=== PATIENT | female | born 1985 | race African-American/Black ===

== ENCOUNTER 2016-09-03 00:52 | Emergency (ER) | payer OTHER ==
[2016-09-03 00:59] VITALS: BP 121/57
--- NOTE | 2016-09-03 02:01 | ED ---
Lower Extremity - HPI Summary HPI Summary: 30 F presents with left ankle pain for 2 days. She says she slipped on black ice and twisted her knee/ankle. She denies any previous injury to the area. She has been able to ambulate on it. She denies any numbness or tingling. - History of Current Complaint Chief Complaint: EDExtremityLower Stated Complaint: LEFT ANKLE PAIN//FALL Time Seen by Provider: 09/03/16 01:07 Hx Last Menstrual Period: 09/2015 Pain Intensity: 9 - Allergies/Home Medications Allergies/Adverse Reactions: Allergies Allergy/AdvReac Type Severity Reaction Status Date / Time No Known Allergies Allergy Verified 02/16/16 16:38 PMH/Surg Hx/FS Hx/Imm Hx Endocrine/Hematology History: Denies: Hx Anticoagulant Therapy Cardiovascular History: Denies: Hx Hypertension - Surgical History Surgery Procedure, Year, and Place: LEAP procedure Infectious Disease History: Yes Infectious Disease History: Reports: Hx of Known/Suspected MRSA - groin abcess Denies: History Other Infectious Disease, Traveled Outside the in Last 30 Days - Family History Known Family History: Positive: None - noncontirbutory Negative: Cardiac Disease - Social History Alcohol Use: None Substance Use Type: Reports: None Smoking Status (MU): Never Smoked Tobacco Have You Smoked in the Last Year: No Review of Systems Negative: Fever Negative: Chest Pain Negative: Shortness Of Breath Positive: Myalgia - left ankle pain All Other Systems Reviewed And Are Negative: Yes Physical Exam Triage Information Reviewed: Yes Vital Signs On Initial Exam: Initial Vitals Temp Pulse Resp BP Pulse Ox 98.8 F 99 18 121/57 100 09/03/16 00:55 09/03/16 00:55 09/03/16 00:55 09/03/16 00:55 09/03/16 00:55 Vital Signs Reviewed: Yes Appearance: Positive: Well-Appearing Skin: Positive: Warm, Dry Head/Face: Positive: Normal Head/Face Inspection Eyes: Positive: Normal, Conjunctiva Clear ENT: Positive: Normal ENT inspection, Pharynx normal, TMs normal Respiratory/Lung Sounds: Positive: Clear to Auscultation, Breath Sounds Present Cardiovascular: Positive: Normal, RRR Musculoskeletal: Positive: Strength/ROM Intact - of left knee, toes,, Limited @ - ankle due to pain, Other - edema noted over anterior talofibular ligament and tenderness over ligament, no step of noted, good pulses, sensation grossly intact, no tenderness of knee, capillary refill<2 secs Diagnostics - Vital Signs Vital Signs Temp Pulse Resp BP Pulse Ox 09/03/16 00:55 98.8 F 99 18 121/57 100 - Laboratory Lab Statement: Any lab studies that have been ordered have been reviewed, and results considered in the medical decision making process. - Radiology ankle Xray Interpretation: No Acute Changes Radiology Interpretation Completed By: ED Physician knee Xray Interpretation: No Acute Changes Radiology Interpretation Completed By: ED Physician tibia Xray Interpretation: No Acute Changes Radiology Interpretation Completed By: ED Physician Lower Extremity Course/Dx - Course Course Of Treatment: 30 F presents with left ankle/knee pain for two days. She was walking when she slipped on black ice and twisted her ankle/knee. She has been able to ambulate since. no edema noted of knee one exam and is nontender. tenderness of ankle over anterior talofibular ligament. I read xray as normal , likely sprain, will treat conservatively, patient agrees with plan - Diagnoses Differential Diagnosis/HQI/PQRI: Positive: Fracture (Closed), Sprain, Strain Provider Diagnoses: Left ankle pain Discharge - Discharge Plan Condition: Good Disposition: HOME Patient Education Materials: Ankle Sprain (ED) Forms: *Work Release Referrals: [facility] [place] [facility] [Outside] Additional Instructions: Ice, rest, elevate Keep david wrap on area Take Tylenol or ibuprofen for pain Set up care with primary care office to follow up Return to ED if develop any numbness, tingling, or ability to move joint or any new symptoms
[2016-09-03] MEDS ORDERED: Ibuprofen TAB* 600 MG PO ONE (02:02)
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
--- NOTE | 2016-09-03 08:02 | RAD ---
HISTORY: Left lower leg pain, fall COMPARISONS: Left ankle dated September 03, 2016 VIEWS: 2, Frontal and lateral views of the proximal left foreleg. The left ankle is not included within the [id number] the current examination. FINDINGS: BONE DENSITY: Normal. BONES: There is no displaced fracture. JOINTS: There is no arthropathy. ALIGNMENT: There is no dislocation. SOFT TISSUES: Unremarkable. OTHER FINDINGS: None. IMPRESSION: NO ACUTE OSSEOUS INJURY OF THE VISUALIZED PORTION OF THE LEFT FORELEG. IF SYMPTOMS PERSIST, RECOMMEND REPEAT IMAGING.
--- NOTE | 2016-09-03 08:04 | RAD ---
INDICATION: Left knee pain COMPARISON: None TECHNIQUE: AP, lateral, and oblique views were obtained. FINDINGS: The bony structures, joint spaces, and soft tissues are normal for age. IMPRESSION: NEGATIVE EXAMINATION.
== END 2016-09-03 02:41 | disposition home or self-care (01) ==
LOC: ED 00:52
DX: M25.572 Pain in left ankle and joints of left foot (principal); M25.562 Pain in left knee
CPT/HCPCS: 99281; A9270-GY

== ENCOUNTER 2016-09-09 12:49 | Emergency (ER) | payer SELFPAY ==
[2016-09-09 13:07] VITALS: BP 139/93
--- NOTE | 2016-09-09 13:44 | UC ---
Lower Extremity/Ankle HPI - HPI Summary HPI Summary: Slipped and fell on ice 6 days ago, was seen at ED and had negative ankle, knee , and lower leg x-rays. Was given an david wrap and crutches in the ED, but not using crutches because she has continued to work. Still having a lot of pain with weight bearing, feels she has been unable to rest because of work responsibilities. Scheduled to work double shift tomorrow. - History of Current Complaint Chief Complaint: UCLowerExtremity Stated Complaint: FOLLOW UP LEG INJURY Time Seen by Provider: 09/09/16 13:12 Hx Obtained From: Patient Hx Last Menstrual Period: DEPO ?: No Onset/Duration: Sudden Onset Severity Initially: Moderate Severity Currently: Mild Aggravating Factor(s): Standing, Ambulation Alleviating Factor(s): Rest Able to Bear Weight: Yes Related History: Occupational Injury - Allergies/Home Medications Allergies/Adverse Reactions: Allergies Allergy/AdvReac Type Severity Reaction Status Date / Time No Known Allergies Allergy Verified 02/16/16 16:38 PMH/Surg Hx/FS Hx/Imm Hx Cardiovascular History Of: Denies: Hypertension Other History Of: Negative For: Anticoagulant Therapy - Surgical History Surgical History: Yes Surgery Procedure, Year, and Place: LEAP procedure - Family History Known Family History: Positive: None - noncontirbutory Negative: Cardiac Disease - Social History Occupation: Employed Full-time - [employer] Lives: With Family Alcohol Use: None Substance Use Type: None Smoking Status (MU): Never Smoked Tobacco Have You Smoked in the Last Year: No - Immunization History Most Recent Influenza Vaccination: 06/07/13 Most Recent Tetanus Shot: UTD Most Recent Pneumonia Vaccination: never Review of Systems Constitutional: Negative Skin: Negative Eyes: Negative ENT: Negative Respiratory: Negative Cardiovascular: Negative Gastrointestinal: Negative Genitourinary: Negative Motor: Negative Neurovascular: Negative Musculoskeletal: Arthralgia - L ankle pain with swelling Neurological: Negative Psychological: Negative All Other Systems Reviewed And Are Negative: Yes Physical Exam Triage Information Reviewed: Yes Appearance: Well-Appearing, No Pain Distress, Well-Nourished Vital Signs: Initial Vital Signs Temp 99.9 F 09/09/16 13:04 Pulse 101 09/09/16 13:04 Resp 14 09/09/16 13:04 BP 139/93 09/09/16 13:04 Pulse Ox 99 09/09/16 13:04 Vital Signs Reviewed: Yes Eye Exam: Normal Eyes: Positive: Conjunctiva Clear ENT Exam: Normal ENT: Positive: Normal ENT inspection, Hearing grossly normal, Pharynx normal, TMs normal Dental Exam: Normal Neck exam: Normal Neck: Positive: Supple, Nontender, No Lymphadenopathy Respiratory Exam: Normal Respiratory: Positive: Chest non-tender, Lungs clear, Normal breath sounds, No respiratory distress, No accessory muscle use Cardiovascular Exam: Normal Cardiovascular: Positive: RRR, No Murmur Musculoskeletal: Positive: ROM Limited @ - L ankle, Other: - tender over L lateral ankle ligaments only. No bony tenderness. Neurological Exam: Normal Psychological Exam: Normal Skin Exam: Normal Lower Extremity Course/Dx - Differential Dx/Diagnosis Provider Diagnoses: L ankle sprain Discharge - Discharge Plan Condition: Stable Disposition: HOME Patient Education Materials: Ankle Sprain (ED) Forms: *Work Release Referrals: Radha Perez MD [Medical Doctor] - 1 Week Additional Instructions: If your ankle does not start to improve with better rest and immobilization, you may need further imaging (follow-up x-ray or MRI) to be ordered by the orthopedist. Keep the boot on for all weight-bearing until you follow up with the orthopedist.
== END 2016-09-09 13:40 | disposition home or self-care (01) ==
LOC: UCEAST 12:49
DX: S93.402A Sprain of unspecified ligament of left ankle, initial encounter (principal); W00.0XXA Fall on same level due to ice and snow, initial encounter; Y93.9 Activity, unspecified; Y92.89 Other specified places as the place of occurrence of the external cause; Y99.0 Civilian activity done for income or pay
CPT/HCPCS: 99202; G0463

== ENCOUNTER → 2016-10-14 10:57 | Day surgery (SDC) | payer OTHER ==
[~2016-10-14 10:57] MED LIST: Buffered Lidocaine 1% SYRIN* 3 ML/SYR SYRINGE INTRADERM ONE; Bupivacaine 0.5% SDV PF* 30 ML VIAL ONE; Bupivacaine 0.5% W/EPI SDV* 30 ML VIAL ONE; Dexamethasone IV* 4 MG/ML 1 ML (4 MG) IV SLOW PU ONE; Dexamethasone IV* 4 MG/ML 1 ML (4 MG) ONE; DiMENhydriNATE IV* 50 MG/ML VIAL IV PUSH PRN; DiMENhydriNATE IV* 50 MG/ML VIAL ONE; Famotidine IV* 10 MG/ML 2 ML (20 mg) IV ONE; Famotidine IV* 10 MG/ML 2 ML (20 mg) ONE; HYDROmorphone* 1 MG/ML 1 ML SYR IV PRN; KETAMINE HCL* 50 MG/ML 10 ML VIAL ONE; Ketorolac INJ* 30 MG/ML 1 ML VIAL ONE; Lidocaine 1% INJ* 10 MG/ML 30 ML SDV ONE; Midazolam* 1 MG/ML 2 ML VIAL (2 MG) ONE; Ondansetron INJ* 2 MG/ML VIAL ONE; Propofol* 10 MG/ML 20 ML BTL IV PUSH ONE; ceFAZolin 2 GM PREMIX(*) 2 GM/50 ML BAG IVPB ONE; fentaNYL* 50 MCG/ML 2 ML VIAL (100 MCG VIAL) ONE
[2016-10-14 11:20] LABS: Manual Entry Verification AS; UR Preg Internal Control QC Line Present; UR Preg Kit Lot# 6030156
[2016-10-14] MEDS: fentaNYL* 50 MCG/ML 2 ML VIAL (100 MCG VIAL) IV PRN ×2 (15:37→16:04)
[2016-10-14 16:18] VITALS: BP 138/94
--- NOTE | 2016-10-15 06:27 | OP ---
DATE OF OPERATION: 10/14/16 - [facility] DATE OF : 85 SURGEON: Anton Carreon MD SCANNING MANAGER: GAURI Hawk ANESTHESIOLOGIST: Dr. Cook. ANESTHESIA: General anesthetic, local infiltration. PRE-OP DIAGNOSIS: Hidradenitis of the left groin. POST-OP DIAGNOSIS: Hidradenitis of the left groin. OPERATIVE PROCEDURE: Wide excision, hidradenitis of left groin. DESCRIPTION OF PROCEDURE: The patient was supine on the operative table. After adequate general anesthetic, compression stockings, Alysia Hugger warmer, and intravenous antibiotics, the left leg was put in the frog leg position and the entire groin, thigh, and lower abdomen region were prepped with Betadine and draped in a sterile fashion. An elliptical incision was created to encompass all the severely infected areas and tracts and this was carried down to the fascia to remove in its entirety and down on to the thigh. This was mobilized and brought upward and the adipose approximated with 3-0 Vicryl and skin with 3- 0 Prolene. Two areas, one above and one below, were left partially open to allow packing and the corner of 4x4 was put into each site followed by bulky gauze dressing. She was awakened and brought to Recovery in good condition. No complications. No drains. Sponge and instrument counts correct. Estimated blood loss was 50 mL. CC: Dr. Sharad Torre* [id number]/CPS #: [id number] MTDD
== END | disposition home or self-care (01) ==
LOC: OR 10:57
PROVIDERS: ATTEND Surgery
DX: L73.2 Hidradenitis suppurativa (principal); Z68.31 Body mass index [BMI] 31.0-31.9, adult
CPT/HCPCS: 36415; 81025; 86703; 87070; 87073; 87205; 88305; J0690; J1100; J1240; J1885; J2001; J2250; J2405; J2704; J3010

== ENCOUNTER 2018-01-31 09:19 | Emergency (ER) | payer SELFPAY ==
[2018-01-31 09:32] VITALS: BP 137/85
--- NOTE | 2018-01-31 10:29 | RAD ---
HISTORY: right thumb injury COMPARISONS: None VIEWS: 3, Frontal, lateral, and oblique views of the first digit of the right hand FINDINGS: BONE DENSITY: Normal. BONES: There is no displaced fracture. JOINTS: There is no arthropathy. ALIGNMENT: There is no dislocation. SOFT TISSUES: Unremarkable. OTHER FINDINGS: None. IMPRESSION: NO ACUTE OSSEOUS INJURY. IF SYMPTOMS PERSIST, RECOMMEND REPEAT IMAGING.
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
== END 2018-01-31 10:44 | disposition home or self-care (01) ==
LOC: UCEAST 09:19
DX: S69.91XA Unspecified injury of right wrist, hand and finger(s), initial encounter (principal); R03.0 Elevated blood-pressure reading, without diagnosis of hypertension; G43.909 Migraine, unspecified, not intractable, without status migrainosus; Y04.0XXA Assault by unarmed brawl or fight, initial encounter; Y92.9 Unspecified place or not applicable
CPT/HCPCS: 99212; G0463

== ENCOUNTER 2018-11-07 08:39 | Emergency (ER) | payer SELFPAY ==
[2018-11-07 08:58] VITALS: BP 117/65
--- NOTE | 2018-11-07 10:39 | UC ---
Hand/Wrist HPI - HPI Summary HPI Summary: 33 year old female presents with complaints of numbness and tingling to the right ulnar arm, hand, ring and pinky fingers x 2 weeks. Denies injury, headache , neck pain, facial droop, slurred or difficulty speaking, extremity weakness, chest pain, or SOB. - History Of Current Complaint Chief Complaint: UCUpperExtremity Stated Complaint: RT HAND NUMBNESS Time Seen by Provider: 11/07/18 10:34 Hx Obtained From: Patient Hx Last Menstrual Period: depo Pain Intensity: 0 - Allergies/Home Medications Allergies/Adverse Reactions: Allergies Allergy/AdvReac Type Severity Reaction Status Date / Time No Known Allergies Allergy Verified 11/07/18 08:59 PMH/Surg Hx/FS Hx/Imm Hx Previously Healthy: Yes - Denies significant PMH Other History Of: Negative For: Anticoagulant Therapy - Surgical History Surgical History: Yes Surgery Procedure, Year, and Place: leep procedure , 15 yrs ago - [place]. bilateral axillary hidrandenitis - 2 yrs ago - [place] - Family History Known Family History: Positive: Non-Contributory - Social History Occupation: Employed Full-time Lives: With Family Alcohol Use: Rare Substance Use Type: Marijuana Substance Use Comment - Amount & Last Used: occ. Smoking Status (MU): Never Smoked Tobacco Have You Smoked in the Last Year: No - Immunization History Most Recent Influenza Vaccination: 06/07/13 Most Recent Tetanus Shot: UTD Most Recent Pneumonia Vaccination: never Review of Systems All Other Systems Reviewed And Are Negative: Yes Constitutional: Positive: Negative Skin: Positive: Negative Respiratory: Positive: Negative Cardiovascular: Positive: Negative Gastrointestinal: Positive: Negative Genitourinary: Positive: Negative Musculoskeletal: Negative: Arthralgia, Decreased ROM, Edema, Myalgia Neurological: Positive: Paresthesia Psychological: Positive: Negative Is Patient Immunocompromised?: No Physical Exam - Summary Physical Exam Summary: GENERAL APPEARANCE: Well developed, well nourished, alert and cooperative, and appears to be in no acute distress. NECK: Neck supple, non-tender. CARDIAC: Normal S1 and S2. No S3, S4 or murmurs. Rhythm is regular. There is no peripheral edema, cyanosis or pallor. Extremities are warm and well perfused. Capillary refill is less than 2 seconds. Peripheral pulses intact. LUNGS: Clear to auscultation without rales, rhonchi, wheezing or diminished breath sounds. ABDOMEN: Positive bowel sounds. Soft, nondistended, nontender. No guarding or rebound. No masses or hepatosplenomegally. MUSKULOSKELETAL: ROM intact to all extremities. No joint erythema or tenderness. Normal muscular development. Normal gait. 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 Light touch and ability to determine sharp and dull sensation intact throughout all dermatomes of the right hand and arm. SKIN: Skin normal color, texture and turgor with no lesions or eruptions. Triage Information Reviewed: Yes Vital Signs: Initial Vital Signs Temp 97.7 F 11/07/18 08:56 Pulse 91 11/07/18 08:56 Resp 29 11/07/18 08:56 BP 117/65 11/07/18 08:56 Pulse Ox 100 11/07/18 08:56 Vital Signs Reviewed: Yes Hand/Wrist Course/Dx - Course Course Of Treatment: 33 year old female presents with complaints of numbness and tingling to the right ulnar arm, hand, ring and pinky fingers x 2 weeks. Denies injury, headache , neck pain, facial droop, slurred or difficulty speaking, extremity weakness, chest pain, or SOB. Afebrile. VSS. Exam was overall unremarkable. I suspect that her symptoms are likely an ulnar neuropathy at the elbow however patient noted the parathesia was most prominent in the ulnar hand, ring, and pinky fingers therefore she was placed in a cockup wrist splint. Recommending conservative treatment including a referral to PT for evaluation and treatment. She is to follow up with her PCP within 7 days. Anticipatory guidance and warning symptoms were reviewed with the patient. Verbalizes understanding and agrees with POC. - Differential Dx/Diagnosis Differential Diagnosis/HQI/PQRI: Carpal Tunnel Syndrome, Sprain, Strain, Tendonitis Provider Diagnosis: Ulnar neuropathy Discharge - Sign-Out/Discharge Documenting (check all that apply): Patient Departure All imaging exams completed and their final reports reviewed: No Studies - Discharge Plan Condition: Stable Disposition: HOME Patient Education Materials: Cubital Tunnel Syndrome (ED) Referrals: Sharad Torre MD [Primary Care Provider] - 7 Days Additional Instructions: I suspect that your symptoms are from a condition called ulnar nerve neuropathy. It is most likely that this is occurring at the level of the elbow. We will try some conservative treatments to see if the symptoms improve. Use the cock-up wrist splint that was provided to you. Avoid leaning on the elbows when seated or driving and avoid prolonged elbow flexion. The use of a soft foam elbow pad may also help to prevent compression of the ulnar nerve at the elbow. I have given you an order for physical therapy which may be beneficial. Follow up with your primary care provider in 7 days if no improvement in symptoms as you may need some nerve conduction testing to further evaluate the symptoms. Seek immediate medical attention in the emergency room if you develop chest pain , shortness of breath, sudden severe headache, facial droop, slurred or difficulty speaking, weakness of the extremities, or any worsening of symptoms. - Billing Disposition and Condition Condition: STABLE Disposition: Home
== END 2018-11-07 11:24 | disposition home or self-care (01) ==
LOC: UCEAST 08:39
DX: G56.21 Lesion of ulnar nerve, right upper limb (principal)
CPT/HCPCS: 99212; G0463

== ENCOUNTER 2018-11-09 08:27 | Emergency (ER) | payer OTHER ==
[2018-11-09 08:36] VITALS: BP 107/65
--- NOTE | 2018-11-09 09:14 | UC ---
HPI Wound/Suture Re-check - HPI Summary HPI Summary: patient here for suture removal of buttocks where abscess was drained. Placed November 01, 2018. No complaints of pain or temperature. - History Of Current Complaint Chief Complaint: UCLaceration Stated Complaint: SUTURE REMOVAL Time Seen by Provider: 11/09/18 09:06 Hx Last Menstrual Period: depo Pain Intensity: 0 - Allergies/Home Medications Allergies/Adverse Reactions: Allergies Allergy/AdvReac Type Severity Reaction Status Date / Time No Known Allergies Allergy Verified 11/09/18 08:36 PMH/Surg Hx/FS Hx/Imm Hx - Additional Past Medical History Additional PMH: PMH: hx of hidrandenitis supparativa. On chronic doxycyline. Family Hx: DM. Previously Healthy: Yes Other History Of: Negative For: Anticoagulant Therapy - Surgical History Surgical History: Yes Surgery Procedure, Year, and Place: leep procedure , 15 yrs ago - [place]. 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 Smoking Status (MU): Never Smoked Tobacco Have You Smoked in the Last Year: No - Immunization History Most Recent Influenza Vaccination: 06/07/13 Most Recent Tetanus Shot: UTD Most Recent Pneumonia Vaccination: never Review of Systems All Other Systems Reviewed And Are Negative: Yes Skin: Positive: Other - healed abscess buttocks Respiratory: Positive: Negative. Negative: Shortness Of Breath Cardiovascular: Positive: Negative Gastrointestinal: Positive: Negative Genitourinary: Positive: Negative Physical Exam - Summary Physical Exam Summary: Appearance: The patient is well-appearing, is in no pain or distress, and is well-nourished. Eyes: Conjunctiva are clear. Pupils are equal and reactive to light and accommodation. Extra ocular muscle movement is intact. ENT: The hearing is grossly normal, the pharynx is normal, and the TMs are normal. There is no muffled or hoarse voice. No stridor. Neck: The neck is supple and there is no lymphadenopathy. Respiratory: The chest is nontender to palpation and without crepitus. The lungs are clear, there are normal breath sounds, and there is no respiratory distress. No wheezes, rales or rhonchi. Cardiovascular: Heart sounds reveal a regular rate and rhythm. There are no clicks, rubs or murmurs. There are no carotid bruits or thrills. Circulation is grossly intact. Abdomen: The abdomen is soft and nontender. There is no organomegaly. Bowel sounds are present and within normal limits. No point tenderness at McBurneys point. Musculoskeletal: Strength is intact. The patient moves all extremities. Neurological: The patient is alert. Motor and sensory are examination grossly intact. Speech is normal. Psychological: The patient displays age appropriate behavior Skin: area of buttocks; well healed abscess. No other skin abscess. PROCEDURE: 3 SUTURES REMOVED. Slight induration. No infection. Slight pain with palpation. Triage Information Reviewed: Yes Vital Signs: Initial Vital Signs Temp 98.8 F 11/09/18 08:33 Pulse 100 11/09/18 08:33 Resp 20 11/09/18 08:33 BP 107/65 11/09/18 08:33 Pulse Ox 100 11/09/18 08:33 Course/Dx - Course Course Of Treatment: 33 yo for suture removal for abscess of buttocks. No sign of infection. Slight induration and tenderness. 3 stitches removed. Patient knows to follow up for increasing pain, swelling or redness. Dx. is resolved abscess, buttocks. - Differential Dx - Laceration/Wound Differential Diagnoses: Suture Removal - Diagnosis Provider Diagnosis: Visit for suture removal, Hidradenitis suppurativa Discharge - Sign-Out/Discharge Documenting (check all that apply): Patient Departure All imaging exams completed and their final reports reviewed: No Studies - Discharge Plan Condition: Stable Disposition: HOME Patient Education Materials: Stitches Removal (ED) Referrals: Sharad Torre MD [Primary Care Provider] - Additional Instructions: WE DISCUSSED: Your 3 stitches have been removed from the area of your buttocks. There is still mild tenderness, but there is no sign of infection. Watch for any increasing swelling, redness, or pain. Recheck if you note any of these. PLEASE SEEK CARE AT THE EMERGENCY DEPARTMENT IF SYMPTOMS WORSEN OR IF NEW SYMPTOMS DEVELOP. FOLLOW UP WITH YOUR PRIMARY CARE PHYSICIAN IF CONDITION CONTINUES BEYOND 3 DAYS WITHOUT IMPROVEMENT. D - Billing Disposition and Condition Condition: STABLE Disposition: Home
== END 2018-11-09 09:33 | disposition home or self-care (01) ==
LOC: UCEAST 08:27
DX: L02.31 Cutaneous abscess of buttock (principal); L73.2 Hidradenitis suppurativa

== ENCOUNTER 2019-01-06 10:44 | Emergency (ER) | payer OTHER ==
[2019-01-06 10:50] VITALS: BP 121/68
[2019-01-06] MEDS ORDERED: Ketorolac INJ* 60 MG/2 ML VIAL IM ONE (11:10)
--- NOTE | 2019-01-06 11:31 | UC ---
Knee Pain HPI - HPI Summary HPI Summary: 33 yo female c/o progressive left knee pain over the past week. Works on her feet a lot, mostly nights. Has been difficult to bear weight. Knee feels more warm and more swollen progressively. Not red. No fever / chills. No recent injury. No other joint c/o's. No GI issues. No rash. No cough / sob. Some swelling in both lower exts/ feet. - History of Current Complaint Chief Complaint: UCLowerExtremity Stated Complaint: KNEE COMPLAINT Time Seen by Provider: 01/06/19 10:50 Hx Obtained From: Patient Hx Last Menstrual Period: depo Pain Intensity: 7 - Allergies/Home Medications Allergies/Adverse Reactions: Allergies Allergy/AdvReac Type Severity Reaction Status Date / Time No Known Allergies Allergy Verified 01/06/19 10:50 PMH/Surg Hx/FS Hx/Imm Hx Previously Healthy: Yes Other History Of: Negative For: Anticoagulant Therapy - Surgical History Surgical History: Yes Surgery Procedure, Year, and Place: leep procedure , 15 yrs ago - [place]. bilateral axillary hidrandenitis - 2 yrs ago - [place] - Family History Known Family History: Positive: Diabetes, Non-Contributory - Social History Alcohol Use: Rare Substance Use Type: Marijuana Substance Use Comment - Amount & Last Used: occ. Smoking Status (MU): Never Smoked Tobacco Have You Smoked in the Last Year: No - Immunization History Most Recent Influenza Vaccination: 06/07/13 Most Recent Tetanus Shot: UTD Most Recent Pneumonia Vaccination: never Review of Systems All Other Systems Reviewed And Are Negative: Yes Constitutional: Positive: Negative Skin: Positive: Other - see hpi Eyes: Positive: Negative ENT: Positive: Negative Respiratory: Positive: Negative Cardiovascular: Positive: Negative Gastrointestinal: Positive: Negative Genitourinary: Positive: Negative Motor: Positive: Other - see hpi Neurovascular: Positive: Negative Musculoskeletal: Positive: Other: - see hpi Neurological: Positive: Negative Psychological: Positive: Negative Is Patient Immunocompromised?: No Physical Exam Triage Information Reviewed: Yes Appearance: Well-Appearing, Well-Nourished Vital Signs: Initial Vital Signs Temp 98 F 01/06/19 10:48 Pulse 78 01/06/19 10:48 Resp 17 01/06/19 10:48 BP 121/68 01/06/19 10:48 Pulse Ox 100 01/06/19 10:48 Vital Signs Reviewed: Yes Eye Exam: Normal - grossly normal ENT Exam: Normal - grossly normal Neck exam: Normal Respiratory Exam: Normal - RR normal, no dyspnea, no tachypnea Cardiovascular Exam: Normal - HR normal, nondiaphoretic. Abdominal Exam: Normal Abdomen Description: Positive: Nontender - benign Musculoskeletal Exam: Other - Left knee + swelling, tender inf patella and med patella. + post knee fluctunce. no redness. No streaking. Able to straighten albeit uncomfortable. Not able to fully bend. No open sores. No lester joint laxity, but there is hesitation with examination Neurological Exam: Normal - nonfocal Psychological Exam: Normal - conversing easily and appropriately Skin Exam: Normal - no visible or reported rash Knee Pain Course/Dx - Course Course Of Treatment: Ketorolac 60mg im x 1 Xray L knee - see Be Spotted. Has crutches at home. Will look into possible knee scooter (maybe at work). F/u orthopedics, referral given today. Questions as posed answered to the best of my ability. - Differential Dx/Diagnosis Provider Diagnosis: Knee pain, acute Discharge - Sign-Out/Discharge Documenting (check all that apply): Post-Discharge Follow Up All imaging exams completed and their final reports reviewed: Yes - Discharge Plan Condition: Stable Disposition: HOME Prescriptions: Meloxicam 7.5 mg PO DAILY #30 tablet Patient Education Materials: Knee Pain (ED) Forms: *Work Release Referrals: Sharad Torre MD [Primary Care Provider] - Additional Instructions: Please stay off your foot as much as possible. Elevate frequently. Edi wrap (or neoprene wrap) during the day if possible. Please follow up with Orthopedics early this week. Seek medical attention for worse or new problems, especially if redness, fever, worse or new pain. - Billing Disposition and Condition Condition: STABLE Disposition: Home
== END 2019-01-06 12:25 | disposition home or self-care (01) ==
LOC: UCEAST 10:44
DX: M25.562 Pain in left knee (principal)
CPT/HCPCS: 96372; 99212; G0463; J1885

== ENCOUNTER 2019-01-20 09:11 | Emergency (ER) | payer SELFPAY ==
[2019-01-20] MEDS ORDERED: NS 0.9% 1000 ML** 1,000 ML IV ONE (09:28)
[2019-01-20] MEDS ORDERED: Ketorolac INJ* 30 MG/ML 1 ML VIAL IV ONE (09:28)
[2019-01-20] MEDS ORDERED: Ondansetron INJ* 2 MG/ML VIAL IV ONE (09:28)
--- NOTE | 2019-01-20 09:32 | ED ---
Complex/Multi-Sys Presentation - HPI Summary HPI Summary: 33 year old F presenting to [facility] with a chief complaint of sharp right-sided flank pain since 23:00 yesterday. The patient rates the pain 7/10 in severity. Symptoms aggravated by deep breathing. Symptoms alleviated by nothing. Patient reports myalgia and chills. Patient denies cough, fever. Patient states she is having difficulty breathing due to the pain. - History Of Current Complaint Chief Complaint: EDShortnessOfBreath Time Seen by Provider: 01/20/19 09:14 Hx Obtained From: Patient Onset/Duration: Sudden Onset, Lasting Hours - 21:00 yesterday, Still Present Timing: Constant Severity Currently: Moderate Aggravating Factor(s): Deep breathing Alleviating Factor(s): Nothing Associated Signs And Symptoms: Positive: Other - Myalgia, chills, difficulty breathing; NEG: Fever, cough - Allergies/Home Medications Allergies/Adverse Reactions: Allergies Allergy/AdvReac Type Severity Reaction Status Date / Time No Known Allergies Allergy Verified 01/20/19 09:17 PMH/Surg Hx/FS Hx/Imm Hx Previously Healthy: No Endocrine/Hematology History: Denies: Hx Anticoagulant Therapy Cardiovascular History: Denies: Hx Hypertension GI History: Reports: Hx Gastroesophageal Reflux Disease - only during Sensory History: Reports: Hx Contacts or Glasses - contacts, will wear glasses day of surgery Opthamlomology History: Reports: Hx Contacts or Glasses - contacts, will wear glasses day of surgery Neurological History: Reports: Hx Migraine - takes prn excedrin - Surgical History Surgery Procedure, Year, and Place: leep procedure , 15 yrs ago - [place]. bilateral axillary hidrandenitis - 2 yrs ago - [place] Hx Anesthesia Reactions: No Infectious Disease History: No Infectious Disease History: Reports: Hx of Known/Suspected MRSA - groin abcess Denies: History Other Infectious Disease, Traveled Outside the [place] in Last 30 Days - Family History Known Family History: Positive: Diabetes Negative: Cardiac Disease, Hypertension - Social History Alcohol Use: Rare Hx Substance Use: Yes Substance Use Type: Reports: Marijuana Substance Use Comment - Amount & Last Used: occ. Hx Tobacco Use: No Smoking Status (MU): Never Smoked Tobacco Have You Smoked in the Last Year: No Review of Systems Positive: Chills. Negative: Fever Positive: Other - difficulty breathing . Negative: Cough Positive: flank pain - right Positive: Myalgia All Other Systems Reviewed And Are Negative: Yes Physical Exam - Summary Physical Exam Summary: VITAL SIGNS: Reviewed. GENERAL: Patient is a well-developed and nourished FEMALE who is in acute distress secondary to her pain. HEAD AND FACE: No signs of trauma. No ecchymosis, hematomas or skull depressions. No sinus tenderness. EYES: PERRLA, EOMI x 2, No injected conjunctiva, no nystagmus. EARS: Hearing grossly intact. Ear canals and tympanic membranes are within normal limits. MOUTH: Oropharynx within normal limits. NECK: Supple, trachea is midline, no adenopathy, no JVD, no carotid bruit, no c- spine tenderness, neck with full ROM. CHEST: Symmetric, no tenderness at palpation LUNGS: Clear to auscultation bilaterally. No wheezing or crackles. CVS: Regular rate and rhythm, S1 and S2 present, no murmurs or gallops appreciated. ABDOMEN: Soft, non-tender. No signs of distention. No rebound no guarding, and no masses palpated. Bowel sounds are normal. BACK: Patient has right flank tenderness and right CVA tenderness EXTREMITIES: FROM in all major joints, no edema, no cyanosis or clubbing. NEURO: Alert and oriented x 3. No acute neurological deficits. Speech is normal and follows commands. SKIN: Dry and warm. Triage Information Reviewed: Yes Vital Signs On Initial Exam: Initial Vitals Temp Pulse Resp BP Pulse Ox 97.4 F 79 22 134/88 98 01/20/19 09:14 01/20/19 09:14 01/20/19 09:14 01/20/19 09:14 01/20/19 09:14 Vital Signs Reviewed: Yes Diagnostics - Vital Signs Vital Signs Temp Pulse Resp BP Pulse Ox 01/20/19 09:14 97.4 F 79 22 134/88 98 - Laboratory Result Diagrams: 01/20/19 09:38 01/20/19 09:38 Lab Statement: Any lab studies that have been ordered have been reviewed, and results considered in the medical decision making process. - Radiology Ribs with CXR Radiology Interpretation Completed By: Radiologist Summary of Radiographic Findings: 1. Negative exam. ED physician has reviewed this report. - CT Abdomen/Pelvis CT Interpretation Completed By: Radiologist Summary of CT Findings: 1. Normal appendix documented. 2. Negative for obstructive uropathy. 3. No etiology for RIGHT flank pain evident. 4. Noted inflammatory change at the LEFT groin crease and labia majora corresponds with. site of recent abscess drainage per conversation with the referring physician. ED physician has reviewed this report. Re-Evaluation - Re-Evaluation First Eval Re-Evaluation Time: 11:37 Change: Improved Comment: Patient updated on plan of care. She is agreeable to discharge Complex Multi-Symp Course/Dx Assessment/Plan: 33 year old F presenting to [facility] with a chief complaint of sharp right-sided flank pain since 23:00 yesterday. The patient rates the pain 7 /10 in severity. Symptoms aggravated by deep breathing. Symptoms alleviated by nothing. Patient reports myalgia and chills. Patient denies cough, fever. Patient states she is having difficulty breathing due to the pain. Blood work without a significant abnormality except for glucose of 128, CRP is 12.9, myoglobin is 4.6. Abdominal and pelvic CT IMPRESSION: 1. Normal appendix documented. 2. Negative for obstructive uropathy. 3. No etiology for RIGHT flank pain evident. 4. Noted inflammatory change at the LEFT groin crease and labia majora corresponds with site of recent abscess drainage per conversation with the referring physician. As reported by the Pelvic CT, the patient had an I&D of the left Labia majora. CXR: negative exam. In the ED course, the patient was given Toradol for the pain and the symptoms have significantly improved. Since the patients blood test results, chest x-ray and abdominal pelvic CT are negative, I believe that the patients pain is probably secondary to muscular skeletal pain. The patient is not tachycardic or hypoxic so I think that the patient may have a type of pulmonary embolism. I discussed all the findings and test results with the patient. Patient was instructed to return to the emergency room immediately if any of the symptoms return worsens. Plan of care was discussed with the patient and understands and agrees. All questions were answered at patient satisfaction. There were no further complaints or concerns. Lung exam before discharge: CTA B/L. Good air exchange. No wheezing or crackles heard. CVS: S1 and S2 present. No murmurs appreciated. Patient is alert and oriented x 3. Patient is hemodynamically stable. Patient will be discharged home with follow up PCP in the next 2-3 days. - Diagnoses Provider Diagnoses: Flank pain, Rib pain on right side Discharge - Sign-Out/Discharge Documenting (check all that apply): Patient Departure - Discharge Patient Received Moderate/Deep Sedation with Procedure: No - Discharge Plan Condition: Stable Disposition: HOME Patient Education Materials: Flank Pain (ED) Referrals: Sharad Torre MD [Primary Care Provider] - 3 Days Additional Instructions: Follow up with your primary care provider in 3 days. Return to the Emergency Department for new or worsening symptoms. - Billing Disposition and Condition Condition: STABLE Disposition: Home - Attestation Statements Document Initiated by Scribe: Yes Documenting Scribe: Clarisse Link Provider For Whom Scribe is Documenting (Include Credential): Nickolas Copeland MD Scribe Attestation: Clarisse Molina, scribed for Nickolas Copeland MD on 01/20/19 at 1306. Scribe Documentation Reviewed: Yes Provider Attestation: The documentation as recorded by the j carlosibClarisse du accurately reflects the service I personally performed and the decisions made by Nickolas de la fuente MD Status of Scribe Document: Viewed
[2019-01-20 09:46] LABS: ABS Lymphocytes 1.8 10^3/ul (1.0-4.8); ABS Monocytes 0.4 10^3/ul (0-0.8); ABS Neutrophils 4.2 10^3/ul (1.5-7.7); Eosinophil % 0.7 %; Hematocrit 36 % (35-47); Lymphocyte % 27.2 %; Mean Corpuscular HGB Conc 33 g/dL (31-36); Mean Corpuscular Hemoglobin 30 pg (27-31); Mean Corpuscular Volume 89 fL (80-97); Mean Platelet Volume 6.5 fL (7.4-10.4); Platelet Count 300 10^3/uL (150-450); Red Blood Count 4.07 10^6 /uL (3.70-4.87); Red Cell Distribution Width 15 % (10-15); White Blood Count 6.5 10^3/uL (3.5-10.8)
[2019-01-20 10:03] LABS: Albumin 3.8 g/dL (3.2-5.2); Albumin/Globulin Ratio 0.8 (1-3); BUN/Creatinine Ratio 11.1 (8-20); C Reactive Protein 12.96 mg/L (<8.01); Calcium 9.2 mg/dL (8.6-10.3); EGFR African American 112.9 (>60); EGFR Non-African American 93.3 (>60); Globulin 4.6 g/dL (2-4); Total Bilirubin 0.3 mg/dL (0.2-1.0); Total Protein 8.4 g/dL (6.4-8.9)
[2019-01-20 10:08] LABS: HCG Pregnancy 33.62 mIU/mL
--- OUTSIDE RECORDS SUMMARY | 2019-01-20 10:51 | XMS REPORT | Continuity of Care Document ---
:1985 Author Organization [facility] Address [address], [place] [id number] Phone Care Team Providers Name Role Phone Mandy MEDICAL RECORDS DIRECTOR, Ijeoma Unavailable Unavailable [facility], NURSE OR MA Unavailable Unavailable Allergies, Adverse Reactions, Alerts Substance Reaction Status No Known Allergies Active Medications Medication Instructions Dosage Effective Dates Status Comments (start - stop) Depo-Provera 150 mg/mL IM Q 11-13 weeks - Active intramuscular suspension Problems Condition Effective Dates (start - Clinical Status Comments stop) Encounter for surveillance of injectable contraceptive Encounter for surveillance of injectable contraceptive Human immunodeficiency virus [HIV] - counseling Encounter for screening for human - immunodeficiency virus Encounter for oth screening for malignant neoplasm of breast Encntr screen for infections w sexl mode of transmiss Encounter for surveillance of injectable contraceptive 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) w abnormal findings Hidradenitis suppurativa Candidiasis of vulva and vagina Human immunodeficiency virus [HIV] - counseling Encounter for surveillance of injectable contraceptive Encounter for surveillance of injectable contraceptive Encounter for surveillance of injectable contraceptive Encounter for surveillance of injectable contraceptive Encounter for surveillance of injectable contraceptive Human immunodeficiency virus [HIV] - counseling Encounter for oth general cnsl and - advice on contraception Body mass index (BMI) 31.0-31.9, adult Encounter for surveillance of injectable contraceptive Encounter for surveillance of injectable contraceptive Encounter for surveillance of injectable contraceptive Encounter for surveillance of injectable contraceptive Encounter for surveillance of injectable contraceptive Encounter for surveillance of injectable contraceptive Encntr screen for infections w sexl mode of transmiss Encounter for surveillance of injectable contraceptive Encounter for surveillance of injectable contraceptive Encounter for surveillance of injectable contraceptive Encounter for surveillance of injectable contraceptive LABORATORY EXAM NOS LABORATORY EXAM NOS Procedures Procedure Date INJECTION OR LAB ONLY VISIT EST INJECTION DEPO/CEFTRIAXONE OTHER Medical Services Contraceptive Welder Plasma Arc.Svc. Other Welder Plasma Arc.Svc. STI DEPO Results Test Name Date and Time Measure Units Reference Range Abnormal Flag Status Comments No information Advance Directives Directive Yes / No Effective Date File Name No information Encounters Encounter Practice Location Reason(s) Diagnoses Date Provider Providers Description For Visit Copied on Encounter [facility] Encounter for Mandy Referring [facility] surveillance of Ijeoma. [address] Provider: [facility] injectable [address], Ijeoma Finger contraceptive [place], [place], Raphaelidis [facility], [address]. , [address] tel:[phone], [address], [place], [address] [place], [place], [address]. [id number], tel:[phone] [place] [phone] tel:[phone] lting [phone] Provider: NURSE OR MA [facility]. [facility] Encounter for Black Referring [facility] surveillance of Magaly. 620 Provider: [facility] injectable [address], Mag[place] Finger contraceptive [place], [place], Black J, [address] [place], [address], [place]. [address] tel:[phone] St, [place], St, [place], [address] [place], [address]. [place], tel:[phone], [phone] [place] tel:[phone] [facility] Human White Christina. Referring Parenthood [place] immunodeficienc - [address] Provider: [facility] y virus [HIV] [address] St, [place], [place], [address], White, [address] [place], 620 nter for [place]. W [address] screening for St, [place], [place], [place], [address]. [place] immunodeficienc [id number], y [place] virusEncounter tel:[phone] for oth [phone] screening for malignant neoplasm of breastEncntr screen for infections w sexl mode of transmissEncoun ter for surveillance of injectable contraceptiveEn cntr for mems process engineer exam (general) (routine) w abnormal findingsHidrade nitis suppurativaCand idiasis of vulva and vagina [facility] Human Nov-0 Kamila Vasquez. Referring Parenthood [place] immunodeficienc 6- [address] Provider: [facility] y virus [HIV] [address] St, [place], [place], [address], [place], [address] [place], 620 nter for [place]. W [place] surveillance of St, [place], [place], [place], [place], [address]. [place], contraceptive [id number], [place] tel:[phone] [facility] Encounter for Mandy Referring [facility] surveillance of 8 Ijeoma. [address] W Provider: [facility]able [address], Ijeoma Finger contraceptive [place], [place], Raphaelidis [facility], [address]. , [address] tel:[phone] [address], St, [place], [address] [place], [place], [address]. [id number], tel:[phone] [place] [phone] tel:[phone] lting [phone] Provider: NURSE OR ROSE MARY [facility]. [facility] Encounter for Kamila Vasquez. Referring [facility] surveillance of 9 [address] Provider: [facility] injectable [address], [place], [place], [address], [place], [address] [place], 620 [place]. [address], [place], St, [place], [address]. [place], [id number], [place] tel:[phone] [facility] Encounter for Kamila Vasquez. Referring [facility] surveillance of 0- [address] Provider: [facility] injectable [address], [place], [place], [address], [place], [address] [place], [address] [place]. [address], [place], St, [place], [place], [address].Consu [id number], lting [place] Provider: tel:[phone] NURSE OR ROSE MARY [id number] [facility]. [facility] Encounter for Kamila Vasquez. Referring [facility] surveillance of [address] Provider: [facility] injectable [address], [place], [place], [address], [place], [address] [place], 620 [place]. [address], [place], St, [place], [address].Consu [id number], lting [place] Provider: tel:[phone] [place] [id number] [facility]. [facility] Human Jun- Kamila Vasquez. Referring [facility] immunodeficienc 0-201 [address] Provider: [facility] y virus [HIV] [address] St, [place], [place], [address], [place], [address] [place], 620 nter for oth [place]. [address] general cnsl , [place], St, [place], [place], [address]. [place], contraceptionBo [id number], dy mass index [place] (BMI) tel:[phone] 31.0-31.9, [phone] adultEncounter for surveillance of injectable contraceptive [facility] Encounter for Sep-0 [place]re[place]-Hem Referring [facility] surveillance of [address] Sueane. Provider: [facility] injectable 7 [address], [place], Farida R, [place], [address] [place], [address]. [address] tel:[phone], St, [place], [address] [place], [place], [address]. [id number], tel:[phone] [place] [phone] tel:[phone] lting [phone] Provider: NURSE OR [place] [facility]. [facility] Encounter for 0 Kamila Vasquez. Referring [facility] surveillance of 3-201 [address] Provider: [facility] injectable [address], [place], [place], [address], Farida R, [facility], 620 [place]. [address], St, [place], [place], [address]. [id number], tel:[phone] [place] [phone] tel:[phone] lting [phone] Provider: NURSE OR MA [facility]. [facility] Encounter for White Christina. Referring [facility] surveillance of [address] Provider: [facility] injectable [address], [place], [place], [address], Josefa Roman, 620 [place]. [address], [address], [place], [place], [address]. [id number], tel:[phone] [place] [phone] tel:[phone] lting [phone] Provider: NURSE OR MA [facility]. [facility] Encounter for Borglum Referring [facility] surveillance of - Yolanda. 620 Provider: [facility] injectable [address], Ilda [place] contraceptive [place], [place], Josefa Roman, [address], [place]. [address] tel:[phone], , [place], [address] [place], [place], [address]. [id number], tel:[phone] [place] [phone] tel:[phone] lting [phone] Provider: NURSE OR MA [facility]. [facility] Encounter for Guggino Referring [facility] surveillance of Sariah. Provider: [facility] injectable 6 [address], [place], Josefa Roman, [address] [place], [address], [address] infections w [place]. [address], St, [place], sexl mode of tel:[phone] [place], [place], [place], transmiss [address]. [id number], tel:[phone] [place] [phone] tel:[phone] [facility] Encounter for White Christina. Referring [facility] surveillance of [address] Provider: [place] injectable [address], [place], [place], [address], Josefa Roman, 620 [place]. [address], [address], [place], [place], [address]. [id number], tel:[phone] [place] [phone] tel:[phone] lting [phone] Provider: NURSE OR MA [facility]. [facility] Encounter for White Christina. Referring [facility] surveillance of [address] Provider: [facility] injectable [address], [place], [place], [address], Farida Hamm, [facility], 620 [place]. [address], St, [place], [place], [address]. [id number], tel:[phone] [place] [phone] tel:[phone] lting [phone] Provider: NURSE OR MA [facility]. [facility] Jair Peralta. [facility] [place] [address], [place], [place], [address]. [facility], 620 tel:[phone], [place], [place], [id number], [place] tel:[phone] [facility] Encounter for Jair Peralta. Referring [facility] surveillance of [address] Provider: [place] injectable 6 , [place], [place], [address]. Adam, 620 [facility], [facility] tel:[phone], [place], St, [place], [address]. [place], tel:[phone], [phone] [place] lting tel:[phone] Provider: [id number] NURSE OR ROSE MARY [facility]. [facility] Encounter for Parete Referring [facility] surveillance of Dora. [address] Provider: [facility] inject[facility] [address], Dora [place] contraceptive [place], [place]arete, [address] [facility], [facility] [address]. [address] tel:[phone] St, [place], St, [place], [address] [place], [address]. [place], tel:[phone], [phone] [place] tel:[phone] [facility] LABORATORY EXAM May- [employer] [facility] NOS - Shannen. [address] Provider: [facility] [address], NURSE OR [place], [place], [facility]. [facility], [facility] [address]. [address] tel:[phone] St, [place], [address] [place], [id number], [place] tel:[phone] [facility] LABORATORY EXAM Apr- [place]-Hem [facility] [place] NOS 2-[address] Sueane. Southern [address] [place] [facility], [place], [address] [place], [address]. [address] tel:[phone] [facility], [address] [place], [id number], tel:[phone] Family History Family Member Diagnosis Age At Onset Sister No history of Myocardial infarction before age 65 Brother No history of Myocardial infarction before age 55 Father No history of Myocardial infarction No family history of Blood clots, legs Brother No history of Stroke before age 55 1st degree relative No hx of osteoporosis Sister No history of Stroke before age 65 Father No history of Stroke Mother No history of Stroke Mother No history of Myocardial infarction 1st degree relative No hx of venous thromboembolism 1st degree relative No hx of coronary heart disease (female <65, male <55) 1st degree relative No hx of cancer of breast, colon, endometrium or ovary No family history of Blood clots, lung Immunizations Vaccine Date Status Comments HPV, unspecified formulation administered Note: PER HALTH HX ; Source: Source Unspecified HPV, unspecified formulation administered Note: PER HEALTH HX ; Source: Source Unspecified HPV (9-valent) administered Note: PER HEALTH HX ; Source: Source Unspecified Payers Payer name Insurance type Covered democrat ID Authorization(s) [facility] [id number] Social History Type Description Quantity Date Captured Comments Alcohol Use Details Unknown Caffeine Use Details Unknown Tobacco Use Status Unknown Smoking Status Never smoker Sex Female Vital Signs Date / Height Weight BMI Pulse Blood Temperature Respiratory Body Head BMI Pulse Inhaled Time: Rate Pressure Rate Surface Circumference percentile Ox Ox Area No information Chief Complaint And Reason For Visit No information Reason For Referral Reason For Referral No information Plan Of Treatment Date Type Action Status No information History Of Present Illness Encounter Date Complaint History Of Present Illness No information Functional Status Date Functional Assessment No information Medications Administered Medication Instructions Dosage Effective Dates (start - stop) Status Comments No information Instructions Date Instruction Additional Information No information Assessments Type Assessment Date assessment Encounter for surveillance of injectable contraceptive Goals Health Concern Goal Type Priority Status Date No information Medical Equipment Description Device [place] Device Identifier Effective Dates (start - stop ) Status No information Mental Status Date Cognitive Assessment No information Health Concerns Observation Date No information Concern Status Date No information
[2019-01-20 11:32] LABS: Urine Appearance Clear; Urine Bacteria Absent (Absent); Urine Bilirubin Negative (Negative); Urine Blood 1+ (Negative); Urine Color Yellow; Urine Glucose Negative (Negative); Urine Ketones Negative (Negative); Urine Nitrite Negative (Negative); Urine Protein Negative (Negative); Urine Red Blood Cell 1+(3-5/hpf) (Absent); Urine Specific Gravity 1.008 (1.010-1.030); Urine Squamous Epithelial Cell Present (Absent); Urine Urobilinogen Negative (Negative); Urine White Blood Cell Trace(0-5/hpf) (Absent)
[2019-01-20 13:05] VITALS: BP 123/80
== END 2019-01-20 12:36 | disposition home or self-care (01) ==
LOC: ED 09:11
DX: R10.31 Right lower quadrant pain (principal); R07.81 Pleurodynia
CPT/HCPCS: 36415; 74176; 80053; 81003; 81015; 83690; 84702; 85025; 86140; 87086; 87088; 96361; 96374; 96375; 99283; J1885; J2405

== ENCOUNTER 2019-01-21 05:54 | Emergency (ER) | payer SELFPAY ==
[2019-01-21 06:23] LABS: ABS Eosinophils 0.1 10^3/ul (0-0.6); ABS Lymphocytes 2.1 10^3/ul (1.0-4.8); ABS Monocytes 0.5 10^3/ul (0-0.8); Hematocrit 35 % (35-47); Hemoglobin 11.8 g/dL (12.0-16.0); Lymphocyte % 31.6 %; Mean Corpuscular HGB Conc 33 g/dL (31-36); Mean Corpuscular Hemoglobin 30 pg (27-31); Mean Corpuscular Volume 89 fL (80-97); Mean Platelet Volume 6.3 fL (7.4-10.4); Nucleated Red Blood Cells % 0.1; Platelet Count 310 10^3/uL (150-450); Red Blood Count 3.98 10^6 /uL (3.70-4.87); Red Cell Distribution Width 15 % (10-15); White Blood Count 6.8 10^3/uL (3.5-10.8)
[2019-01-21 06:31] LABS: INR 1.16 (0.82-1.09)
[2019-01-21 06:40] LABS: ALT 8 U/L (7-52); AST 10 U/L (13-39); Albumin 3.8 g/dL (3.2-5.2); Albumin/Globulin Ratio 0.8 (1-3); Alkaline Phosphatase 42 U/L (34-104); Anion Gap 6 mmol/L (2-11); BUN/Creatinine Ratio 9.6 (8-20); Blood Urea Nitrogen 7 mg/dL (6-24); CO2 Carbon Dioxide 25 mmol/L (22-32); Calcium 9.1 mg/dL (8.6-10.3); Chloride 108 mmol/L (101-111); EGFR African American 111.1 (>60); EGFR Non-African American 91.8 (>60); Globulin 4.6 g/dL (2-4); Glucose 113 mg/dL (70-100); Potassium 3.7 mmol/L (3.5-5.0); Sodium 139 mmol/L (135-145); Total Protein 8.4 g/dL (6.4-8.9)
--- NOTE | 2019-01-21 06:52 | ED ---
HPI Chest Pain - HPI Summary HPI Summary: Pt. is a 33 y.o female who presents to the ER for CP and SOB x 1 day. Pt. was seen in ED yesterday for abd/flank pain. Pt. had labs and ct scan that were unremarkable. Pt. states her pain moved into her chest today and she feels short of breath. Past hx of hidradenitis. Pt. receives depo. Pt. notes recent cough but denies fever, abd. pain, V/D, or urinary sxs. NO hx of asthma. Sxs are moderate in severity. NO current modifying factors. - History of Current Complaint Chief Complaint: EDChestPainROMI Time Seen by Provider: 01/21/19 06:09 Hx Obtained From: Patient Hx Last Menstrual Period: depo Pain Intensity: 10 - Allergy/Home Medications Allergies/Adverse Reactions: Allergies Allergy/AdvReac Type Severity Reaction Status Date / Time No Known Allergies Allergy Verified 01/20/19 09:17 PMH/Surg Hx/FS Hx/Imm Hx Previously Healthy: Yes Endocrine/Hematology History: Denies: Hx Anticoagulant Therapy Cardiovascular History: Denies: Hx Hypertension GI History: Reports: Hx Gastroesophageal Reflux Disease - only during Sensory History: Reports: Hx Contacts or Glasses - contacts, will wear glasses day of surgery Opthamlomology History: Reports: Hx Contacts or Glasses - contacts, will wear glasses day of surgery Neurological History: Reports: Hx Migraine - takes prn excedrin - Surgical History Surgery Procedure, Year, and Place: leep procedure , 15 yrs ago - [place]. bilateral axillary hidrandenitis - 2 yrs ago - [place] Hx Anesthesia Reactions: No - Immunization History Immunizations Up to Date: Yes Infectious Disease History: No Infectious Disease History: Reports: Hx of Known/Suspected MRSA - groin abcess Denies: History Other Infectious Disease, Traveled Outside the [place] in Last 30 Days - Family History Known Family History: Positive: Diabetes Negative: Cardiac Disease, Hypertension - Social History Occupation: Employed Full-time Lives: With Family Alcohol Use: Rare Hx Substance Use: Yes Substance Use Type: Reports: None Substance Use Comment - Amount & Last Used: occ. Hx Tobacco Use: No Smoking Status (MU): Never Smoked Tobacco Have You Smoked in the Last Year: No Review of Systems Constitutional: Negative Negative: Fever, Chills ENT: Negative Positive: Chest Pain. Negative: Palpitations Positive: Shortness Of Breath, Cough Gastrointestinal: Negative Negative: Abdominal Pain, Vomiting, Diarrhea, Nausea Genitourinary: Negative Musculoskeletal: Negative Skin: Negative Negative: Rash Neurological: Negative All Other Systems Reviewed And Are Negative: Yes Physical Exam Triage Information Reviewed: Yes Vital Signs On Initial Exam: Initial Vitals Temp Pulse Resp BP Pulse Ox 97.3 F 82 16 131/88 97 01/21/19 05:59 01/21/19 05:59 01/21/19 05:59 01/21/19 05:59 01/21/19 05:59 Vital Signs Reviewed: Yes Appearance: Positive: Well-Appearing - Pt. sitting up in bed in NAD. Very talkative. Skin: Positive: Warm, Dry Head/Face: Positive: Normal Head/Face Inspection Eyes: Positive: Normal, EOMI Neck: Positive: Supple Respiratory/Lung Sounds: Positive: Clear to Auscultation, Breath Sounds Present. Negative: Rales, Rhonchi, Wheezes Cardiovascular: Positive: Normal, RRR. Negative: Murmur Abdomen Description: Positive: Other: - Obese. Abd. is soft and nontender throughout. No CVA tenderness bilaterally. Musculoskeletal: Positive: Normal, Strength/ROM Intact, Other - Pain diffusely to the chest wall on palpation. Neurological: Positive: Normal, CN Intact II-III Psychiatric: Positive: Affect/Mood Appropriate Diagnostics - Vital Signs Vital Signs Temp Pulse Resp BP Pulse Ox 01/21/19 06:30 67 21 99 01/21/19 06:23 68 23 99 01/21/19 06:21 80 13 136/93 99 01/21/19 05:59 97.3 F 82 16 131/88 97 - Laboratory Lab Results: Lab Results 01/21/19 01/21/19 01/21/19 Range/Units 06:13 06:13 06:13 WBC 6.8 (3.5-10.8) 10^3/uL RBC 3.98 (3.70-4.87) 10^6 /uL Hgb 11.8 L (12.0-16.0) g/dL Hct 35 (35-47) % MCV 89 (80-97) fL MCH 30 (27-31) pg MCHC 33 (31-36) g/dL RDW 15 (10-15) % Plt Count 310 (150-450) 10^3/uL MPV 6.3 L (7.4-10.4) fL Neut % (Auto) 59.9 % Lymph % (Auto) 31.6 % Brooke % (Auto) 7.3 % Eos % (Auto) 1.0 % Baso % (Auto) 0.2 % Absolute Neuts (auto) 4.0 (1.5-7.7) 10^3/ul Absolute Lymphs (auto) 2.1 (1.0-4.8) 10^3/ul Absolute Monos (auto) 0.5 (0-0.8) 10^3/ul Absolute Eos (auto) 0.1 (0-0.6) 10^3/ul Absolute Basos (auto) 0.0 (0-0.2) 10^3/ul Absolute Nucleated RBC 0.0 10^3/ul Nucleated RBC % 0.1 INR (Anticoag Therapy) 1.16 H (0.82-1.09) D-Dimer, Quantitative Pending Sodium 139 (135-145) mmol/L Potassium 3.7 (3.5-5.0) mmol/L Chloride 108 (101-111) mmol/L Carbon Dioxide 25 (22-32) mmol/L Anion Gap 6 (2-11) mmol/L BUN 7 (6-24) mg/dL Creatinine 0.73 (0.51-0.95) mg/dL Est GFR ( Amer) 111.1 (>60) Est GFR (Non-Af Amer) 91.8 (>60) BUN/Creatinine Ratio 9.6 (8-20) Glucose 113 H (70-100) mg/dL Calcium 9.1 (8.6-10.3) mg/dL Total Bilirubin 0.30 (0.2-1.0) mg/dL AST 10 L (13-39) U/L ALT 8 (7-52) U/L Alkaline Phosphatase 42 (34-104) U/L Troponin I 0.00 (<0.04) ng/mL Total Protein 8.4 (6.4-8.9) g/dL Albumin 3.8 (3.2-5.2) g/dL Globulin 4.6 H (2-4) g/dL Albumin/Globulin Ratio 0.8 L (1-3) Result Diagrams: 01/21/19 06:13 01/21/19 06:13 Lab Statement: Any lab studies that have been ordered have been reviewed, and results considered in the medical decision making process. Chest Pain Course/Dx - Course Course Of Treatment: Pt. presenting for CP and SOB. She is afebrile and with stable VS. Pt. had abd. CT and CXR yesterday that were negative for acute findings. Given CP and hormonal BC use will check DDimer. ECG done at 0601 shows a sinus rhythm of 68bpm, normal axis, no ST elevation or depression. Labs are unremarkable other than elevated ddimer. CTA ordered to r.o PE. CTA negative for PE but does she signs of possible cellulitis to right axilla, per radiology. Pt. notes she has a hx of hidradenitis suppurativa. Results discussed with pt. Her cp is reproducible. Examine right axilla and pt. has a few areas of induration and erythema. NO fluctuance noted. WIll place on doxycycline for potential cellulitis. Advised warm compreeses. Advised NSAID for discomfort as directed. CLose fu with PCP and return to ER if sxs change or worsen. - Chest Pain Differential Diagnosis/HQI/PQRI: Chest Wall, Lower Respiratory Infection, Pulmonary Edema - Diagnoses Provider Diagnoses: Chest wall pain, Cellulitis Discharge - Sign-Out/Discharge Documenting (check all that apply): Patient Departure Patient Received Moderate/Deep Sedation with Procedure: No - Discharge Plan Condition: Good Disposition: HOME Prescriptions: DOXYcycline CAP(*) [DOXYcycline 100MG CAP(*)] 100 mg PO BID #20 cap Sulfamethox/Trimethoprim DS* [Bactrim DS 800/160 TAB*] 1 tab PO BID #14 tab Patient Education Materials: Cellulitis (ED), Chest Wall Pain (ED) Forms: *Work Release Referrals: Sharad Torre MD [Primary Care Provider] - Additional Instructions: Follow up with PCP and dermatology as scheduled Antibiotic as directed Can continue mobic as directed Apply warm compresses Return to ER if symptoms change or worsen - Billing Disposition and Condition Condition: GOOD Disposition: Home
[2019-01-21] MEDS ORDERED: Iohexol 350* (CONTRAST) 500 ML MDV IV ONE (07:38)
[2019-01-21 08:01] LABS: HCG Pregnancy < 0.60 mIU/mL
[2019-01-21 08:58] VITALS: BP 132/75
--- NOTE | 2019-01-23 07:13 | PN ---
Progress Note - Progress Note Date of Service: 01/23/19 Note: patient urine culture grew Corynebacterium stritum 50-75,000. patient placed on doxycycline. patient has vaginal abscess so this is likely a contaminant from this. will have stop doxycyline and switch to bactrim ds bid X7 days as will cover this. spoke with patient about change at 7:18am
== END 2019-01-21 09:05 | disposition home or self-care (01) ==
LOC: ED 05:54
DX: R07.89 Other chest pain (principal); L03.111 Cellulitis of right axilla; N76.0 Acute vaginitis; R06.02 Shortness of breath; R05 Cough; Z86.14 Personal history of Methicillin resistant Staphylococcus aureus infection; G43.909 Migraine, unspecified, not intractable, without status migrainosus
CPT/HCPCS: 36415; 71275; 80053; 84484; 84702; 85025; 85379; 85610; 93005; 99284; Q9967

== ENCOUNTER → 2019-01-26 14:14 | Emergency (ER) | payer OTHER ==
[~2019-01-26 14:14] MED LIST changes: -Buffered Lidocaine 1% SYRIN* 3 ML/SYR SYRINGE INTRADERM ONE; -Bupivacaine 0.5% SDV PF* 30 ML VIAL ONE; -Bupivacaine 0.5% W/EPI SDV* 30 ML VIAL ONE; -Dexamethasone IV* 4 MG/ML 1 ML (4 MG) IV SLOW PU ONE; -Dexamethasone IV* 4 MG/ML 1 ML (4 MG) ONE; -DiMENhydriNATE IV* 50 MG/ML VIAL IV PUSH PRN; -DiMENhydriNATE IV* 50 MG/ML VIAL ONE; -Famotidine IV* 10 MG/ML 2 ML (20 mg) IV ONE; -Famotidine IV* 10 MG/ML 2 ML (20 mg) ONE; -HYDROmorphone* 1 MG/ML 1 ML SYR IV PRN; -KETAMINE HCL* 50 MG/ML 10 ML VIAL ONE; +Ketorolac INJ* 30 MG/ML 1 ML VIAL IM ONE; -Ketorolac INJ* 30 MG/ML 1 ML VIAL ONE; -Lidocaine 1% INJ* 10 MG/ML 30 ML SDV ONE; -Midazolam* 1 MG/ML 2 ML VIAL (2 MG) ONE; -Ondansetron INJ* 2 MG/ML VIAL ONE; -Propofol* 10 MG/ML 20 ML BTL IV PUSH ONE; -ceFAZolin 2 GM PREMIX(*) 2 GM/50 ML BAG IVPB ONE; -fentaNYL* 50 MCG/ML 2 ML VIAL (100 MCG VIAL) ONE
--- OUTSIDE RECORDS SUMMARY | 2019-01-26 14:28 | XMS REPORT | Continuity of Care Document ---
:1985 External Reference #:[id number] Author Name Ratna Howell Care Team Providers Name Role Phone Sharad Torre MD Primary Care Physician Unavailable Payers Date Identification Numbers Payment Provider Subscriber Effective: 2018 Policy Number: [id number] [employer] Alexsandra Salcido PayID: [id number] [address] [address] [place] [address] Effective: 2018 Policy Number: [id number] [employer] Alexsandra Salcido Expires: 2018 PayID: [id number] [address] [address] [place] [address] Family History Date Family Member(s) Observation Comments General No Current Problems Social History Type Date Description Comments Sex Unknown Marital Status Single Lives With Family Occupation Currently Working ETOH Use Denies alcohol use Tobacco Use Start: Unknown Patient has never smoked Recreational Drug Use Current Drug User marijuana use Smoking Status Reviewed: 01/24/19 Patient has never smoked Exercise Type/Frequency Does not exercise Allergies, Adverse Reactions, Alerts Description No Known Drug Allergies Medications Active Medications SIG Qnty Indications Ordering Provider Date Depo-Provera every 3 months Unknown 150mg/ml Suspension Excedrin Migraine 1 tab every 6 Unknown hours as needed [phone] Tablets for pain Spironolactone twice a day Salas Miller, 25mg Tablets LUANA JASON Meloxicam Take 2 Tablets Unknown 7.5mg Tablets By Mouth Once Daily For 7 Days Then as Needed For Pain Doxycycline Monohydrate Unknown 100mg Capsules History Medications Doxycycline Hyclate 1 by mouth twice 20caps Anton Carreon, 09/21/2016 - a day M.DJohann Unknown 100mg Capsules Doxycycline Hyclate 1 cap by mouth 28caps L73.2 Caleb Palaciojoycekhalida, 07/12/2016 - twice a day BRADLEY RODRIGUEZ Unknown 100mg Capsules Prednisone 2 tabs by mouth 7tabs L73.2 Yanick DJohann 06/08/2016 - 20mg daily for 2 days Josy Rico Unknown Tablets then 1 tabs by mouth for 3 days Clindamycin apply twice daily 120ml L73.2 Yanick DJohann 06/08/2016 - Phosphate to affected area Josy Rico Unknown 1% Solution Doxycycline Hyclate 1 cap by mouth 30caps L73.2 Yanick DJohann 04/20/2016 - twice a day with Josy Rico Unknown 100mg Capsules food Bactrim DS 1 by mouth twice Unknown - 800-160mg a day 04/20/2016 Tablets Oxycodone-Acetaminop 1-2 by mouth Unknown - hen every 4-6 hours Unknown 5-325mg Tablets as needed for pain. Vital Signs Date Vital Result Comment 01/24/2019 2:50pm Height 64 inches 5'4" Weight 172.00 lb BP Systolic 132 mmHg BP Diastolic 74 mmHg Respiratory Rate 18 /min Pain Level 7 BMI (Body Mass Index) 29.5 kg/m2 12/13/2018 9:44am Height 64 inches 5'4" Weight 173.00 lb Heart Rate 90 /min BP Systolic Sitting 104 mmHg BP Diastolic Sitting 60 mmHg Respiratory Rate 18 /min Body Temperature 97.9 F BMI (Body Mass Index) 29.7 kg/m2 11/02/2016 10:34am Heart Rate 78 /min Respiratory Rate 16 /min Body Temperature 97.7 F 10/27/2016 1:49pm Heart Rate 90 /min Respiratory Rate 18 /min Body Temperature 98.0 F 10/22/2016 8:58am Heart Rate 72 /min Respiratory Rate 16 /min Body Temperature 97.8 F 10/20/2016 9:34am Heart Rate 90 /min Respiratory Rate 18 /min Body Temperature 98.7 F 10/18/2016 11:32am Heart Rate 62 /min Respiratory Rate 16 /min Body Temperature 98.8 F 10/15/2016 10:31am Heart Rate 72 /min BP Systolic 120 mmHg BP Diastolic 72 mmHg Respiratory Rate 18 /min Body Temperature 98.1 F 09/21/2016 9:09am Heart Rate 84 /min BP Systolic 118 mmHg BP Diastolic 78 mmHg Respiratory Rate 18 /min Body Temperature 99.1 F 07/12/2016 11:04am Heart Rate 96 /min BP Systolic 140 mmHg BP Diastolic 80 mmHg Respiratory Rate 18 /min Body Temperature 98.6 F 06/08/2016 10:46am Height 64 inches 5'4" Weight 194.38 lb Heart Rate 62 /min BP Systolic Sitting 128 mmHg BP Diastolic Sitting 80 mmHg Respiratory Rate 14 /min Body Temperature 98.3 F Pain Level 9 BMI (Body Mass Index) 33.4 kg/m2 04/20/2016 10:42am Height 64 inches 5'4" Weight 190.00 lb Heart Rate 72 /min BP Systolic Sitting 110 mmHg BP Diastolic Sitting 68 mmHg Respiratory Rate 14 /min Body Temperature 98.5 F BMI (Body Mass Index) 32.6 kg/m2 Results Test Date Facility Test Result H/L Range Note Laboratory test [facility] Surgical SEE RESULT 1 finding [address] [place] [address] [phone] Wound [facility] Wound/Misc SEE RESULT 2 Culture/Sensi [address] [place] [address] Stain [phone] Laboratory test [facility] Anaerobic SEE RESULT 3 finding [address] [place] [address] [phone] Laboratory test [facility] HIV 1&2 AB Nonreactive N Nonreactive 4 finding [address] [place] [address] [phone] Laboratory test [facility] Negative N Negative 5 finding [address] (HCG) [place] [address] [phone] CBC Auto Diff [facility] White Blood 5.8 10^3/uL N 3.5-10.[address] [place] [address] [phone] Red Blood Count 4.39 10^6/uL N 4.0-5.4 Hemoglobin 12.8 g/dL N 12.0-16.0 Hematocrit 39 % N 35-47 Mean Corpuscular Volume 88 fL N 80-97 Mean Corpuscular Hemoglobin 29 pg N 27-31 Mean Corpuscular HGB Conc 33 g/dL N 31-36 Red Cell Distribution Width 14 % N 10.5-15 Platelet Count 259 10^3/uL N 150-450 Mean Platelet Volume 7 um3 Low 7.4-10.4 Abs Neutrophils 2.3 10^3/uL N 1.5-7.7 Abs Lymphocytes 3.0 10^3/uL N 1.0-4.8 Abs Monocytes 0.4 10^3/uL N 0-0.8 Abs Eosinophils 0.1 10^3/uL N 0-0.6 Abs Basophils 0 10^3/uL N 0-0.2 Abs Nucleated RBC 0.01 10^3/uL N Granulocyte % 40.1 % N 38-83 Lymphocyte % 51.5 % High 25-47 Monocyte % 6.7 % N 1-9 Eosinophil % 1.0 % N 0-6 Basophil % 0.7 % N 0-2 Nucleated Red Blood Cells % 0.1 N Comp Metabolic Panel 06/21/2016 [facility] Sodium 137 mmol/L N 133-145 [address] [place] [address] [phone] Potassium 4.2 mmol/L N 3.5-5.0 Chloride 111 mmol/L N 101-111 Co2 Carbon Dioxide 23 mmol/L N 22-32 Anion Gap 3 mmol/L N 2-11 Glucose 99 mg/dL N 70-100 Blood Urea Nitrogen 6 mg/dL N 6-24 Creatinine 0.80 mg/dL N 0.51-0.95 BUN/Creatinine Ratio 7.5 Low 8-20 Calcium 8.6 mg/dL N 8.6-10.3 Total Protein 7.7 g/dL N 6.4-8.9 Albumin 3.8 g/dL N 3.2-5.2 Globulin 3.9 g/dL N 2-4 Albumin/Globulin Ratio 1.0 N 1-3 Total Bilirubin 0.20 mg/dL N 0.2-1.0 Alkaline Phosphatase 37 U/L N 34-104 Alt 11 U/L N 7-52 Ast 15 U/L N 13-39 Egfr Non- 84.2 N >60 Egfr 108.3 N >60 6 Laboratory test 06/21/2016 [facility] Hemoglobin A1c 5.9 % N Less than [address] (Glyco HGB) 6.0 [place] [address] [phone] 1 SEE RESULT BELOW Name: ALEXSANDRA SALCIDO : [address]: Anton Carreon MD Acct: [id number] Unit: [id number] AGE: 31 Location: OR Re10/14/16 SEX: F Status: [facility] SPEC: [id number] AVI: 10/14/16- [facility] DR: Anton Carreon MD REQ: [id number] RECD: 10/14/16 STATUS: SOUT _ ORDERED: LEVEL IV FINAL DIAGNOSIS Skin and subcutaneous tissue, left groin, resection: -- Hidradenitis suppurativa with abscess formation. -- Lymph nodes (incidental) with reactive follicular lymphoid hyperplasia. PRE-OPERATIVE DIAGNOSIS Hidradenitis suppurativa GROSS DESCRIPTION The specimen is received in formalin labeled, Hidradenitis Left Groin, and consists of a 10.5 x 5.0 cm alex-brown hairbearing wrinkled and focally nodular skin ellipse excised to a maximum depth of 4.9 cm. There is a 2.4 x 1.5 cm partially detached brown- alex wrinkled portion of skin excised to a depth of 2.3 cm along one margin. There are two discrete erythematous sinus tract measuring 2.6 by up to 0.5 cm and 3.8 by up to 0.5 cm within the subcutaneous soft tissue. There are two wen-pink lymph nodes with rare focal hemorrhage measuring 1.3 x 1.2 x 1.0 cm and 2.5 x 1.8 x 1.2 cm. The remaining cut surface consists of yellow lobulated adipose tissue and wen-white rubbery fibrous tissue. The specimen is inked, serially sectioned and charter representative sections are submitted in cassettes A through D to include lymph nodes in cassettes C and D. Signed (signature on file) Kevyn Garcia MD 1624 END OF REPORT * ML=Testing performed at Main Lab DEPARTMENT OF PATHOLOGY, [address] [place] [address] Kevyn Garcia M.D. Director [facility] # [id number] 2 SEE RESULT BELOW Name: SALCIDO,ALEXSANDRA : [address]: Anton Carreon MD Acct: [id number] Unit: [id number] AGE: 31 Location: OR Re10/14/16 SEX: F Status: DEP SDC SPEC: [id number] AVI: 10/14/16-[address] [facility] [address]: Anton Carreon MD REQ: [id number] RECD: 10/14/16 STATUS: [facility] DR: Aundrea Primary Care Phys,[facility] _ SOURCE: [facility]: ORDERED: Culture Stain Procedure Result Reported Site Wound/Misc Gram Stain Final 10/14/16- 1600 ML 4+ Neutrophils 4+ Gram Positive Cocci 2+ Gram Positive Bacilli Wound/Misc Culture Final 10/19/16- 0953 ML Organism 1 PEPTOSTREPTOCOCCUS ANAEROBIUS Quantity 1+ WITH POSSIBLE ADDITIONAL ANAEROBES - UNABLE TO ISOLATE FOR FURTHER IDENTIFICATION. Anaerobic sensitivities are not routinely performed. Positive isolates will be saved for one week. Please call the Microbiology Laboratory if susceptibility testing is needed. * ML - MAIN LAB ([facility]) . END OF REPORT * ML=Testing performed at Main Lab DEPARTMENT OF PATHOLOGY, [address] [place] [address] Kevyn Garcia M.D. Director [facility] # [id number] 3 SEE RESULT BELOW Name: ALEXSANDRA SALCIDO : [address]: Anton Carreon MD Acct: [id number] Unit: [id number] AGE: 31 Location: OR Re10/14/16 SEX: F Status: DEP SDC SPEC: [id number] AVI: 10/14/16-[address] [facility] [address]: Anton Carreon MD REQ: [id number] RECD: 10/14/16-151 STATUS: HE[facility]EN FRANC[facility] DR: Aundrea Primary Care Phys,[facility] _ SOURCE: WOUND SPDESC:OTHER ORDERED: Anaerobic Cult COMMENTS: LEFT GROIN Procedure Result Reported Site Anaerobic Culture Final 10/19/16- 952 ML Organism 1 PEPTOSTREPTOCOCCUS ANAEROBIUS Quantity 2+ WITH POSSIBLE ADDITIONAL ANAEROBES - UNABLE TO ISOLATE FOR FURTHER IDENTIFICATION. * ML - MAIN LAB ([facility]) . END OF REPORT * ML=Testing performed at Main Lab DEPARTMENT OF PATHOLOGY, [address] [place] [address] Kevyn Garcia M.D. Director [facility] # [id number] 4 It is recognized that currently available assays for the detection of antibodies to HIV-1 and/or HIV-2 may not detect all infected individuals. HIV antibodies may be undetectable in some stages of the infection and in some clinical conditions. The performance of this assay has not been established for populations of infants or children. Assayed by Chemiluminescence Microparticle Immunoassay on the Siemens Advia Centaur CP. Values obtained with different methods or kits cannot be used interchangeably.The diagnostic specificity of the ADVIA Centaur 1/O/2 Enhanced assay in the low risk population was 99.90% (6052/6058) with a 95% confidence interval of 99.78 to 99.96%. 5 If is still suspected, please repeat test after 48 to 72 hours. This test detects intact HCG only and is indicated for the early detection of . 6 Because ethnic data is not always readily available, this report includes an eGFR for both -Americans and non- Americans. The National Kidney Disease Education Program (NKDEP) does not endorse the use of the MDRD equation for patients that are not between the ages of 18 and 70, are , have extremes of body size, muscle mass, or nutritional status, or are non- or non-. According to the National Kidney Foundation, irrespective of diagnosis, the stage of the disease is based on the level of kidney function: Stage Description GFR(mL/min/1.73 m(2)) 1 Kidney damage with normal or decreased GFR 90 2 Kidney damage with mild decrease in GFR 60-89 3 Moderate decrease in GFR 30-59 4 Severe decrease in GFR 15-29 5 Kidney failure <15 (or dialysis) 7 Therapeutic target for the treatment of diabetes Mellitus patients is <7% HBA1C, and in selective patients <6.0%.Please refer to [place] Diabetes Association Diabetic care guidelines for further information. Procedures Date Code Description Status 01/24/2019 27544 Inject/Drain Joint/Bursa Major W/O US Completed 01/16/2019 62574 Esophagogastroduodenoscopy, diagnostic, incl brush/wash if Completed perfor 10/14/2016 08543 Excise Sweat Gland Lesion Inguinal Complex Completed 10/14/2016 68024 Excise Sweat Gland Lesion Inguinal Complex Completed Encounters Type Date Location Provider Dx Diagnosis Office Visit 12/13/2018 Surgical Jayesh Peguero K21.0 Gastro-esophageal 9:30a [facility] MD Russell reflux disease with esophagitis R13.10 Dysphagia, unspecified Office Visit 09/21/2016 9:00a Surgical Anton Stone73.2 Hidradenitis [facility] Josy Carreon suppurasolomon Office Visit 07/12/2016 11:00a Surgical Rigo Hugo.2 Hidradenitis [facility] BRADLEY RODRIGUEZ suppurativa Office Visit 06/08/2016 10:30a [facility] Jelly Sierra.2 Hidradenitis Infectious Josy Rico suppurativa Diseases M79.605 Pain in left leg Office Visit 04/20/2016 10:30a [facility] Yanick Sierra.2 Hidradenitis For Infectious Josy Rico suppurativa Diseases Plan of Treatment 01/24/2019 - Theron Jamar Hood, MDM25.562 Pain in left kneeNew Xrays:MRI Knee Left W/O, Ordered: 01/24/19Follow up:Follow up: after MRIS80.02xA Contusion of left knee, initial encounter
--- NOTE | 2019-01-26 15:38 | ED ---
Lower Extremity - HPI Summary HPI Summary: 33 year old female presents with left knee pain for the past 2 weeks. She bumped her knee 2 weeks ago. she states the swelling has been coming and going. States that pain makes it difficult to ambulate. States it feels very unsteady. She denies any numbness or tingling. Denies any new injury. No fevers. No rash. - History of Current Complaint Chief Complaint: EDExtremityLower Stated Complaint: FOOT INJURY Time Seen by Provider: 01/26/19 15:06 Hx Last Menstrual Period: depo Pain Intensity: 9 - Allergies/Home Medications Allergies/Adverse Reactions: Allergies Allergy/AdvReac Type Severity Reaction Status Date / Time No Known Allergies Allergy Verified 01/20/19 09:17 PMH/Surg Hx/FS Hx/Imm Hx Endocrine/Hematology History: Denies: Hx Anticoagulant Therapy, Hx Diabetes Cardiovascular History: Denies: Hx Hypertension GI History: Reports: Hx Gastroesophageal Reflux Disease - only during Sensory History: Reports: Hx Contacts or Glasses - contacts, will wear glasses day of surgery Opthamlomology History: Reports: Hx Contacts or Glasses - contacts, will wear glasses day of surgery Neurological History: Reports: Hx Migraine - takes prn excedrin - Surgical History Surgery Procedure, Year, and Place: leep procedure , 15 yrs ago - [place]. bilateral axillary hidrandenitis - 2 yrs ago - [place] Hx Anesthesia Reactions: No - Immunization History Immunizations Up to Date: Yes Infectious Disease History: No Infectious Disease History: Reports: Hx of Known/Suspected MRSA - groin abcess Denies: History Other Infectious Disease, Traveled Outside the [place] in Last 30 Days - Family History Known Family History: Positive: Diabetes Negative: Cardiac Disease, Hypertension - Social History Alcohol Use: Rare Hx Substance Use: Yes Substance Use Type: Reports: None Substance Use Comment - Amount & Last Used: occ. Hx Tobacco Use: No Smoking Status (MU): Former Smoker Have You Smoked in the Last Year: No Review of Systems Negative: Fever Negative: Chest Pain Negative: Shortness Of Breath Positive: Myalgia - left knee pain All Other Systems Reviewed And Are Negative: Yes Physical Exam Triage Information Reviewed: Yes Vital Signs On Initial Exam: Initial Vitals Temp Pulse Resp BP Pulse Ox 99.0 F 87 16 109/72 99 01/26/19 14:17 01/26/19 14:17 01/26/19 14:17 01/26/19 14:17 01/26/19 14:17 Vital Signs Reviewed: Yes Appearance: Positive: Well-Appearing Skin: Positive: Warm, Dry Head/Face: Positive: Normal Head/Face Inspection Eyes: Positive: Normal, Conjunctiva Clear ENT: Positive: Pharynx normal Respiratory/Lung Sounds: Positive: Clear to Auscultation, Breath Sounds Present Cardiovascular: Positive: Normal, RRR Musculoskeletal: Positive: Strength/ROM Intact - left knee with pain, Edema Left , Other - not warm to touch, no rash, neg ballotment, good pulses Neurological: Positive: Normal Psychiatric: Positive: Normal Diagnostics - Vital Signs Vital Signs Temp Pulse Resp BP Pulse Ox 01/26/19 14:17 99.0 F 87 16 109/72 99 - Laboratory Lab Statement: Any lab studies that have been ordered have been reviewed, and results considered in the medical decision making process. - Radiology knee Radiology Interpretation Completed By: Radiologist Summary of Radiographic Findings: IMPRESSION: NO ACUTE OSSEOUS INJURY. IF SYMPTOMS PERSIST, RECOMMEND REPEAT IMAGING. Lower Extremity Course/Dx - Course Course Of Treatment: 33 year old female presents with left knee pain for the past 2 weeks. She bumped her knee 2 weeks ago. she states the swelling has been coming and going. States that pain makes it difficult to ambulate. States it feels very unsteady. She denies any numbness or tingling. Denies any new injury. No fevers. No rash. On exam no rash noted to knee. Has range of motion with pain. No evidence of septic arthritis. X-ray normal. with swelling we'll place on short course of steroids. gave knee immobilize and crutches We'll have follow-up with orthopedic. Patient understands agrees the plan. - Diagnoses Differential Diagnosis/HQI/PQRI: Positive: Contusion, Fracture (Closed), Sprain Provider Diagnoses: Left knee pain Discharge - Sign-Out/Discharge Documenting (check all that apply): Patient Departure Patient Received Moderate/Deep Sedation with Procedure: No - Discharge Plan Condition: Good Disposition: HOME Prescriptions: methylPREDNISolone [Medrol Dosepak 4 MG*] 4 mg PO .SEE YING INSTRUCTION #1 packet Patient Education Materials: Knee Pain (ED) Referrals: Sharad Torre MD [Primary Care Provider] - Additional Instructions: take steroid pack Use immobilizer Stay off knee as much as possible Ice, elevate, Ibuprofen or Tylenol every 6 hours for pain Follow up with ortho Return to ED if develop or any new or worsening symptoms - Billing Disposition and Condition Condition: GOOD Disposition: Home
[2019-01-26 16:33] VITALS: BP 112/73
== END | disposition home or self-care (01) ==
LOC: ED 14:14
DX: M25.562 Pain in left knee (principal); Z87.891 Personal history of nicotine dependence
CPT/HCPCS: 96372; 99282; J1885

== ENCOUNTER → 2019-03-02 18:34 | Emergency (ER) | payer OTHER ==
[2019-03-02 18:38] VITALS: BP 150/63
--- OUTSIDE RECORDS SUMMARY | 2019-03-02 19:17 | XMS REPORT | Continuity of Care Document ---
:1985 External Reference #:[id number] Author Name Carri Guidry Care Team Providers Name Role Phone Sharad Torre MD Primary Care Physician Unavailable Payers Date Identification Numbers Payment Provider Subscriber Effective: 2018 Policy Number: [id number] [employer] Alexsandra Salcido PayID: [id number] [address] [address] [place] [address] Effective: 2018 Policy Number: [id number] [employer] Alexsandra Salcido Expires: 2018 PayID: [id number] [address] [address] [place] [address] Family History Date Family Member(s) Observation Comments General No Current Problems Social History Type Date Description Comments Sex Unknown Marital Status Single Lives With Family Occupation Currently Working ETOH Use Denies alcohol use Tobacco Use Start: Unknown Patient has never smoked Recreational Drug Use Current Drug User marijuana use Smoking Status Reviewed: 02/06/19 Patient has never smoked Exercise Type/Frequency Does not exercise Allergies, Adverse Reactions, Alerts Description No Known Drug Allergies Medications Active Medications SIG Qnty Indications Ordering Provider Date Depo-Provera every 3 months Unknown 150mg/ml Suspension Excedrin Migraine 1 tab every 6 Unknown hours as needed [id number] Tablets for pain Spironolactone twice a day [...] 2 tabs by mouth 7tabs L73.2 Yanick Woods 06/08/2016 - 20mg daily for 2 days Josy Rico Unknown Tablets then 1 tabs by mouth for 3 days Clindamycin apply twice daily 120ml L73.2 Yanick Woods 06/08/2016 - Phosphate to affected area Josy Rico Unknown 1% Solution Doxycycline Hyclate 1 cap by mouth 30caps L73.2 Yanick DJohann 04/20/2016 - twice a day with Josy Rico Unknown 100mg Capsules food Bactrim DS 1 by mouth twice Unknown - 800-160mg a day 04/20/2016 Tablets Oxycodone-Acetaminop 1-2 by mouth Unknown - hen every 4-6 hours Unknown 5-325mg Tablets as needed for pain. Medications Administered in Office Medication SIG Qnty Indications Ordering Provider Date Depomedrol 40MG Theron Morataya MD 01/24/2019 Injection Vital Signs Date Vital Result Comment 02/06/2019 10:50am Height 64 inches 5'4" Weight 172.00 lb Heart Rate 110 /min BP Systolic 140 mmHg BP Diastolic 78 mmHg Body Temperature 99.1 F Pain Level 10 BMI (Body Mass Index) 29.5 kg/m2 01/24/2019 2:50pm Height 64 inches 5'4" Weight [...] Test Result H/L Range Note Laboratory test [facility] Surgical SEE RESULT 1 finding [address] Pathology BELOW [place], [place] [id number] [phone] Wound [facility] Wound/Misc SEE RESULT 2 Culture/Sensi [address] [place] [address] Stain [phone] Laboratory test [facility] Anaerobic SEE RESULT 3 finding [address] [place] [address] [phone] Laboratory test [facility] HIV 1&2 AB Nonreactive N Nonreactive 4 finding [address] [address] [phone] Laboratory test [facility] Negative N Negative 5 finding [address] (HCG) [place] [address] [phone] CBC Auto Diff [facility] White Blood 5.8 10^3/uL N 3.5-10.[address] [place] [address] [phone] Red Blood Count 4.39 10^6/uL N 4.0-5.4 [...] % 0.1 N Comp Metabolic Panel 06/21/2016 [facility] Sodium 137 mmol/L N 133-[address] [place] [address] [phone] Potassium 4.2 mmol/L N 3.5-5.0 Chloride 111 [...] 108.3 N >60 6 Laboratory test 06/21/2016 [facility] Hemoglobin A1c 5.9 % N Less than [address] (Glyco HGB) 6.0 [place] [address] [phone] 1 SEE RESULT BELOW Name: ALEXSANDRA SALCIDO : [address]: Anton Carreon MD Acct: [id number] Unit: [id number] AGE: 31 Location: OR Re10/14/16 SEX: F Status: DAR [facility] SPEC: [id number] AVI: 10/14/16- [facility] DR: Anton Carreon MD REQ: [id number] RECD: 10/14/16 STATUS: SOUT _ ORDERED: LEVEL [...] The specimen is inked, serially sectioned and membership sales representative sections are submitted in cassettes A through D to include lymph nodes in cassettes C and D. Signed (signature on file) Kevyn Garcia MD 1624 END OF REPORT * ML=Testing performed at Main Lab DEPARTMENT OF PATHOLOGY, [address] [place] [address] Kevyn Garcia M.D. Director [facility] # [id number] 2 SEE RESULT BELOW Name: ALEXSANDRA SALCIDO : [address]: Anton Carreon MD Acct: [id number] Unit: [id number] AGE: 31 Location: OR Re10/14/16 SEX: F Status: DAR SDC SPEC: [id number] AVI: 10/14/16-[address]: Anton Carreon MD REQ: [id number] RECD: 10/14/16-151 STATUS: HEAVEN FRANCIS DR: Aundrea Primary Care Phys,[facility] _ S[facility]: Culture Stain Procedure Result Reported Site [...] is needed. * ML - MAIN LAB ([facility]) . END OF REPORT * ML=Testing performed at Main Lab DEPARTMENT OF PATHOLOGY, [address] [place] [address] Kevyn Garcia M.D. Director [facility] # [id number] 3 SEE RESULT BELOW Name: ALEXSANDRA SALCIDO : [address]: Anton Carreon MD Acct: [id number] Unit: [id number] AGE: 31 Location: OR Re10/14/16 SEX: F Status: DEP SDC SPEC: [id number] AVI: 10/14/16-1430 [facility] DR: Anton Carreon MD REQ: [id number] RECD: 10/14/16892 STATUS: HEAVEN FRANCIS DR: No Primary Care Phys,NOPCP _ SOURCE: WOUND SPDESC:OTHER ORDERED: Anaerobic Cult COMMENTS: LEFT GROIN Procedure Result Reported Site Anaerobic Culture Final 10/19/16- 0953 ML Organism 1 PEPTOSTREPTOCOCCUS ANAEROBIUS Quantity 2+ WITH POSSIBLE ADDITIONAL ANAEROBES - UNABLE TO ISOLATE FOR FURTHER IDENTIFICATION. * ML - MAIN LAB ([facility]) . END OF REPORT * ML=Testing performed at Main Lab DEPARTMENT OF PATHOLOGY, [address] [place] [address] Kevyn Garcia M.D. Director [facility] # [id number] 4 It is recognized that currently available assays for the detection of antibodies to HIV-1 and/or HIV-2 may not detect all infected individuals. HIV antibodies may be undetectable in some stages of the infection and in some clinical conditions. The performance of this assay has not been established for populations of infants or children. Assayed by Chemiluminescence Microparticle Immunoassay on the Siemens AdvCrescendo [employer]ologicsaur CP. Values obtained with different methods or [...] and in selective patients <6.0%.Please refer to [place] [employer] Diabetic care guidelines for further information. Procedures Date Code Description Status 01/24/2019 16432 Inject/Drain Joint/Bursa Major W/O US Completed 01/16/2019 31222 Esophagogastroduodenoscopy, diagnostic, incl brush/wash if Completed perfor 10/14/2016 33239 Excise Sweat Gland Lesion Inguinal Complex Completed 10/14/2016 75387 Excise Sweat Gland Lesion Inguinal Complex Completed Encounters Type Date Location Provider Dx Diagnosis Office Visit 12/13/2018 Surgical Jayesh Peguero K21.0 Gastro-esophageal 9:30a [facility] reflux disease with esophagitis R13.10 Dysphagia, unspecified Office Visit 09/21/2016 9:00a Surgical Anton Stone73.2 [facility] Carreon M.D. suppurativa Office Visit 07/12/2016 11:00a Surgical Rigo Hugo.2 [facility] , FACS suppurativa Office Visit 06/08/2016 10:30a [facility] For Yancik Stone73.2 Hidradenitis Infectious Josy Rico suppurativa Diseases M79.605 Pain in left leg Office Visit 04/20/2016 10:30a [facility] Yanick Stone73.2 Hidradenitis For Infectious Josy Rico suppurativa Diseases Plan of Treatment 02/06/2019 - Jie Hamm, MDM25.562 Pain in left kneeS80.02xD Contusion of left knee, subsequent qphzipripF39.462 Effusion, left kneeNew Xrays:MRI Knee Left W/O, Ordered: 02/06/19Follow up:Follow up: after MRI
--- OUTSIDE RECORDS SUMMARY | 2019-03-02 19:17 | XMS REPORT | Continuity of Care Document ---
:1985 External Reference #:[id number] Author Name Carri Guidry Care Team Providers Name Role Phone Sharad Torre MD Primary Care Physician Unavailable Payers Date Identification Numbers Payment Provider Subscriber Effective: 2018 Policy Number: [id number] [employer] Alexsandra Salcido PayID: [id number] [address] [address] [place] [address] Effective: 2018 Policy Number: [id number] [employer] Alexsandra Salcido Expires: 2018 PayID: [id number] [address] [address] [place] [address] Problems Active Problems Provider Date Closed fracture of patella Jie Hamm MD Onset: 02/27/2019 Family History Date Family Member(s) Observation Comments General No Current Problems Social History Type Date Description Comments Sex Unknown Marital Status Single Lives With Family Occupation Currently Working ETOH Use Denies alcohol use Tobacco Use Start: Unknown Patient has never smoked Recreational Drug Use Current Drug User marijuana use Smoking Status Reviewed: 02/27/19 Patient has never smoked Exercise Type/Frequency Does not exercise Allergies, Adverse Reactions, Alerts Description No Known Drug Allergies Medications Active Medications SIG Qnty Indications Ordering Provider Date Depo-Provera every 3 months Unknown 150mg/ml Suspension Excedrin Migraine 1 tab every 6 Unknown hours as needed [phone] Tablets for pain Spironolactone twice a day Salas Miller, 25mg Tablets MS, PA-C History Medications Doxycycline Hyclate 1 by mouth twice 20caps Anton Carreon, 09/21/2016 - a day M.DJohann Unknown 100mg Capsules Doxycycline Hyclate 1 cap by mouth 28caps L73.2 Caleb Muñoz, 07/12/2016 - twice a day BRADLEY RODRIGUEZ [...] Unknown 5-325mg Tablets as needed for pain. Meloxicam Take 2 Tablets By Unknown - 7.5mg Mouth Once Daily 02/26/2019 Tablets For 7 Days Then as Needed For Pain Doxycycline Unknown - Monohydrate 02/26/2019 100mg Capsules Medications Administered in Office Medication SIG Qnty Indications Ordering Provider Date Depomedrol 40MG Theron Morataya MD 01/24/2019 Injection Vital Signs Date Vital Result Comment 02/27/2019 10:17am Height 64 inches 5'4" Weight 166.00 lb BP Systolic 132 mmHg BP Diastolic 78 mmHg Respiratory Rate 17 /min Pain Level 7 BMI (Body Mass Index) 28.5 kg/m2 02/06/2019 10:50am Height 64 inches 5'4" Weight [...] Facility Test Result H/L Range Note Laboratory 10/15/19 [facility] Surgical SEE RESULT 1 test finding [address] [place] [address] [phone] Wound 10/15/19 [facility] Wound/Misc SEE RESULT 2 Culture/Sensi [address] [place] [address] Stain [phone] Laboratory 10/15/19 [facility] Anaerobic SEE RESULT 3 test finding [address] [place] [address] [phone] Laboratory 10/15/19 [facility] HIV 1&2 AB Nonreactive Normal Nonreactive 4 test finding [address] [place] [address] [phone] Laboratory 10/15/19 [facility] Negative Normal Negative 5 test finding [address] (HCG) [place] [address] [phone] CBC Auto Diff 06/21/20 [facility] White Blood 5.8 10^3/uL Normal 3.5-10.[address] [place] [address] [phone] Red Blood Count 4.39 10^6/uL Normal 4.0-5.4 Hemoglobin 12.8 g/dL Normal 12.0-16.0 Hematocrit 39 % Normal 35-47 Mean Corpuscular Volume 88 fL Normal 80-97 Mean Corpuscular Hemoglobin 29 pg Normal 27-31 Mean Corpuscular HGB Conc 33 g/dL Normal 31-36 Red Cell Distribution Width 14 % Normal 10.5-15 Platelet Count 259 10^3/uL Normal 150-450 Mean Platelet Volume 7 um3 Low 7.4-10.4 Abs Neutrophils 2.3 10^3/uL Normal 1.5-7.7 Abs Lymphocytes 3.0 10^3/uL Normal 1.0-4.8 Abs Monocytes 0.4 10^3/uL Normal 0-0.8 Abs Eosinophils 0.1 10^3/uL Normal 0-0.6 Abs Basophils 0 10^3/uL Normal 0-0.2 Abs Nucleated RBC 0.01 10^3/uL Normal Granulocyte % 40.1 % Normal 38-83 Lymphocyte % 51.5 % High 25-47 Monocyte % 6.7 % Normal 1-9 Eosinophil % 1.0 % Normal 0-6 Basophil % 0.7 % Normal 0-2 Nucleated Red Blood Cells % 0.1 Normal Comp Metabolic 06/21/2016 [facility] Sodium 137 mmol/L Normal 133-[address] [place] [address] [phone] Potassium 4.2 mmol/L Normal 3.5-5.0 Chloride 111 mmol/L Normal 101-111 Co2 Carbon Dioxide 23 mmol/L Normal 22-32 Anion Gap 3 mmol/L Normal 2-11 Glucose 99 mg/dL Normal 70-100 Blood Urea Nitrogen 6 mg/dL Normal 6-24 Creatinine 0.80 mg/dL Normal 0.51-0.95 BUN/Creatinine Ratio 7.5 Low 8-20 Calcium 8.6 mg/dL Normal 8.6-10.3 Total Protein 7.7 g/dL Normal 6.4-8.9 Albumin 3.8 g/dL Normal 3.2-5.2 Globulin 3.9 g/dL Normal 2-4 Albumin/Globulin Ratio 1.0 Normal 1-3 Total Bilirubin 0.20 mg/dL Normal 0.2-1.0 Alkaline Phosphatase 37 U/L Normal 34-104 Alt 11 U/L Normal 7-52 Ast 15 U/L Normal 13-39 Egfr Non- 84.2 Normal >60 Egfr 108.3 Normal >60 6 Laboratory test 06/21/2016 [facility] Hemoglobin A1c 5.9 % Normal Less than [address] (Glyco HGB) 6.0 [place] [id number] [phone] 1 SEE RESULT BELOW Name: SALCIDOJONNYEmanuel : [address]: Anton Carreon MD Acct: [id number] Unit: [id number] AGE: 31 Location: OR Re10/14/16 SEX: F Status: DAR MALDONADO SPEC: [id number] AVI: 10/14/16- SUBM DR: Anton Carreon MD REQ: [id number] RECD: 10/14/16-163 STATUS: SOUT _ ORDERED: LEVEL IV FINAL [...] The specimen is inked, serially sectioned and retail customer service representative sections are submitted in cassettes A through D to include lymph nodes in cassettes C and D. Signed (signature on file) Kevyn Garcia MD 1621 END OF REPORT * ML=Testing performed at Main Lab DEPARTMENT OF PATHOLOGY, [address] [place] [address] Kevyn Garcia M.D. Director [facility] # [id number] 2 SEE RESULT BELOW Name: ALEXSANDRA SALCIDO : [address]: Anton Carreon MD Acct: [id number] Unit: [id number] AGE: 31 Location: OR Re10/14/16 SEX: F Status: DEP SDC SPEC: [id number] AVI: 10/14/16-1420 [facility] DR: Anton Carreon MD REQ: [id number] RECD: 10/14/16151 STATUS: HEAVEN FRANCIS DR: Aundrea Primary Care Phys,NOPCP _ SOURCE: MELISSA RIVERA SPDESC: ORDERED: Culture Stain Procedure Result Reported Site [...] is needed. * ML - MAIN LAB ([facility]) . END OF REPORT * ML=Testing performed at Main Lab DEPARTMENT OF PATHOLOGY, [address] [place] [address] Kevyn Garcia M.D. Director [facility] # [id number] 3 SEE RESULT BELOW Name: SALCIDO,ALEXSANDRA : [address]: Anton Carreon MD Acct: [id number] Unit: [id number] AGE: 31 Location: OR Re10/14/16 SEX: F Status: DAR MALDONADO SPEC: [id number] AVI: 10/14/16-0 [facility] DR: Anton Carreon MD REQ: [id number] RECD: 10/14/16 STATUS: HEAVEN FRANCIS DR: Aundrea Primary Care Phys,NOPCP _ SOURCE: WOUND SPDESC:OTHER ORDERED: Anaerobic Cult COMMENTS: LEFT GROIN Procedure Result Reported Site Anaerobic Culture Final 10/19/16- 952 ML Organism 1 PEPTOSTREPTOCOCCUS ANAEROBIUS Quantity 2+ WITH POSSIBLE ADDITIONAL ANAEROBES - UNABLE TO ISOLATE FOR FURTHER IDENTIFICATION. * ML - MAIN LAB ([facility]) . END OF REPORT * ML=Testing performed at Main Lab DEPARTMENT OF PATHOLOGY, [address] [place] [address] Kevyn Garcia M.D. Director [facility] # [id number] 4 It is recognized that currently available [...] and in selective patients <6.0%.Please refer to [place] [employer] Diabetic care guidelines for further information. Procedures Date Code Description Status 01/24/2019 25446 Inject/Drain Joint/Bursa Major W/O US Completed 01/16/2019 79989 Esophagogastroduodenoscopy, diagnostic, incl brush/wash if Completed perfor 10/14/2016 51710 Excise Sweat Gland Lesion Inguinal Complex Completed 10/14/2016 04623 Excise Sweat Gland Lesion Inguinal Complex Completed Encounters Type Date Location Provider Dx Diagnosis Office Visit 02/06/2019 Orthopedic Jie Hamm MD M25.562 Pain in left knee 10:30a [facility] S80.02xD Contusion of left knee, subsequent encounter M25.462 Effusion, left knee Office Visit 01/24/2019 2:30p Orthopedic Theron F M25.562 Pain in left [facility] Morataya MD knee S80.02xA Contusion of left knee, initial encounter Office Visit 12/13/2018 Surgical Jayesh Peguero K21.0 Gastro-esophageal 9:30a [facility] reflux disease with [facility] esophagitis R13.10 Dysphagia, unspecified Office Visit 09/21/2016 9:00a Surgical Anton Sierra.2 [facility]rad[facility]itis [facility] Josy Carreon suppurativa Office Visit 07/12/2016 11:00a Surgical Rigo Hugo.2 [facility] BRADLEY RODRIGUEZ suppurativa Office Visit 06/08/2016 10:30a [facility] For Yanick Stone73.2 Hidradenitis Infectious Josy Rico suppurativa Diseases M79.605 Pain in left leg Office Visit 04/20/2016 10:30a [facility] Yanick Stone73.2 Hidradenitis For Infectious Josy Rico suppurativa Diseases Plan of Treatment Future Appointment(s):03/27/2019 10:00 am - Jie Hamm MD at [facility].02/27/2019 - Jie Hamm, MDS82.002A Unspecified fracture of left patella, initial encounter for closed fractureFollow up:Follow up: 3-4 weeks
== END | disposition left against medical advice (07) ==
LOC: ED 18:34
DX: R10.9 Unspecified abdominal pain (principal); Z53.21 Procedure and treatment not carried out due to patient leaving prior to being seen by health care provider

== ENCOUNTER 2019-03-10 17:11 | Emergency (ER) | payer SELFPAY ==
--- NOTE | 2019-03-10 17:37 | ED ---
Shortness of Breath - HPI Summary HPI Summary: 33 year old female presents with shortness breath for past week. She states the pain is located on bilateral ribs. She admits to chest tightness. She states is better when she sits up. She states she has been having a cough. No fevers. admits to occasional vomiting or diarrhea. She did injure her knee a couple weeks ago and has been using an immobilizer. She denies any family history of blood clots. She does smoke marijuana. No fam history of cardiac disease. no recent travel. pain is often sharp and brief in her ribs. admits to generalized abd pain in addition. - History of Current Complaint Chief Complaint: EDShortnessOfBreath Time Seen by Provider: 03/10/19 17:27 - Allergy/Home Medications Allergies/Adverse Reactions: Allergies Allergy/AdvReac Type Severity Reaction Status Date / Time No Known Allergies Allergy Verified 03/10/19 17:19 Home Medications: Home Medications Ibuprofen 600 mg PO Q6HR PRN 03/10/19 [History Confirmed 03/10/19] PMH/Surg Hx/FS Hx/Imm Hx Endocrine/Hematology History: Denies: Hx Anticoagulant Therapy, Hx Diabetes Cardiovascular History: Denies: Hx Hypertension, Hx Pacemaker/ICD Respiratory History: Denies: Hx Asthma, Hx Chronic Obstructive Pulmonary Disease (COPD) GI History: Reports: Hx Gastroesophageal Reflux Disease - only during History: Denies: Hx Renal Disease Sensory History: Reports: Hx Contacts or Glasses - contacts, will wear glasses day of surgery Denies: Hx Hearing Aid Opthamlomology History: Reports: Hx Contacts or Glasses - contacts, will wear glasses day of surgery Neurological History: Reports: Hx Migraine - takes prn excedrin Psychiatric History: Denies: Hx Panic Disorder - Surgical History Surgery Procedure, Year, and Place: leep procedure , 15 yrs ago - [place]. bilateral axillary hidrandenitis - 2 yrs ago - [place] Hx Anesthesia Reactions: No Infectious Disease History: No Infectious Disease History: Reports: Hx of Known/Suspected MRSA - groin abcess Denies: History Other Infectious Disease, Traveled Outside the [place] in Last 30 Days - Family History Known Family History: Positive: Diabetes Negative: Cardiac Disease, Hypertension, Blood Disorder - Social History Alcohol Use: Occasionally Hx Substance Use: Yes Substance Use Type: Reports: Marijuana Substance Use Comment - Amount & Last Used: occ. Hx Tobacco Use: No Smoking Status (MU): Former Smoker Have You Smoked in the Last Year: No Review of Systems Negative: Fever Positive: Chest Pain Positive: Shortness Of Breath, Cough Positive: Abdominal Pain. Negative: Vomiting, Diarrhea All Other Systems Reviewed And Are Negative: Yes Physical Exam Triage Information Reviewed: Yes Vital Signs On Initial Exam: Initial Vitals Temp Pulse Resp BP Pulse Ox 99.0 F 92 16 114/72 98 03/10/19 17:13 03/10/19 17:13 03/10/19 17:13 03/10/19 17:13 03/10/19 17:13 Vital Signs Reviewed: Yes Appearance: Positive: Well-Appearing Skin: Positive: Warm, Dry Head/Face: Positive: Normal Head/Face Inspection Eyes: Positive: Normal, EOMI, MEENA, Conjunctiva Clear ENT: Positive: Normal ENT inspection, Pharynx normal, TMs normal Respiratory/Lung Sounds: Positive: Clear to Auscultation, Breath Sounds Present , Other - tenderness chest wall Cardiovascular: Positive: Normal, RRR Abdomen Description: Positive: Soft, Other: - diffuse abd pain Bowel Sounds: Positive: Present Musculoskeletal: Positive: Normal Neurological: Positive: Normal Psychiatric: Positive: Normal Diagnostics - Vital Signs Vital Signs Temp Pulse Resp BP Pulse Ox 03/10/19 17:13 99.0 F 92 16 114/72 98 - Laboratory Result Diagrams: 03/10/19 17:48 03/10/19 17:48 Lab Statement: Any lab studies that have been ordered have been reviewed, and results considered in the medical decision making process. - Radiology chest Radiology Interpretation Completed By: ED Physician Summary of Radiographic Findings: no acute disease - CT chest CT Interpretation Completed By: Radiologist Summary of CT Findings: IMPRESSION: No pulmonary emboli. No additional findings to correlate with patient's. symptomatology. - EKG No standard instances Cardiac Rate: NL EKG Rhythm: Sinus Rhythm Summary of EKG Findings: sinus rhythm Course/Dx - Course Course Of Treatment: 33 year old female presents with shortness breath for past week. She states the pain is located on bilateral ribs. She admits to chest tightness. She states is better when she sits up. She states she has been having a cough. No fevers. admits to occasional vomiting or diarrhea. She did injure her knee a couple weeks ago and has been using an immobilizer. She denies any family history of blood clots. She does smoke marijuana. No history of cardiac disease. on exam has tenderness chest wall. lungs CTA. heart RRR without murmur. ekg shows sinus rhyth without ST elevation. mild diffuse abd tenderness. chest xray shows no acute findings. wbc normal. crp elevated. troponin zero. d-dimer elevated so will CTA. CTA shows no PE. discussed that is likely costrochronditis as has reproducible chest pain and to treat with ibuprofen. with stomach irritation with ibuprofen will prescribe omeprazole. patient understand and agrees with plan. - Diagnoses Differential Diagnosis/HQI/PQRI: Positive: Chest Wall Pain, Pneumonia, Pulmonary Embolism Provider Diagnoses: Chest wall pain Discharge - Sign-Out/Discharge Documenting (check all that apply): Patient Departure Patient Received Moderate/Deep Sedation with Procedure: No - Discharge Plan Condition: Good Disposition: HOME Prescriptions: Omeprazole CAP (NF) [Prilosec CAP* 20 MG] 20 mg PO DAILY #14 cap.dr Patient Education Materials: Chest Wall Pain (ED) Referrals: Sharad Torre MD [Primary Care Provider] - Additional Instructions: Take ibuprofen every 6 hours as needed for pain take omeprazole daily while taking ibuprofen Follow up with primary within 5 days Return to ED if develop any new or worsening symptoms - Billing Disposition and Condition Condition: GOOD Disposition: Home
[2019-03-10 17:57] LABS: ABS Lymphocytes 1.9 10^3/ul (1.0-4.8); ABS Monocytes 0.6 10^3/ul (0-0.8); ABS Neutrophils 4.4 10^3/ul (1.5-7.7); Eosinophil % 0.4 %; Hematocrit 32 % (35-47); Hemoglobin 11.1 g/dL (12.0-16.0); Lymphocyte % 27.7 %; Mean Corpuscular HGB Conc 34 g/dL (31-36); Mean Corpuscular Hemoglobin 30 pg (27-31); Mean Corpuscular Volume 86 fL (80-97); Mean Platelet Volume 6.2 fL (7.4-10.4); Platelet Count 387 10^3/uL (150-450); Red Blood Count 3.76 10^6 /uL (3.70-4.87); Red Cell Distribution Width 13 % (10-15); White Blood Count 6.9 10^3/uL (3.5-10.8)
[2019-03-10 18:15] LABS: ALT 7 U/L (7-52); AST 9 U/L (13-39); Albumin 3.7 g/dL (3.2-5.2); Albumin/Globulin Ratio 0.7 (1-3); Alkaline Phosphatase 36 U/L (34-104); Anion Gap 7 mmol/L (2-11); BUN/Creatinine Ratio 9.7 (8-20); Blood Urea Nitrogen 6 mg/dL (6-24); C Reactive Protein 53.31 mg/L (<8.01); CO2 Carbon Dioxide 26 mmol/L (22-32); Calcium 9.2 mg/dL (8.6-10.3); Chloride 104 mmol/L (101-111); EGFR African American 134.1 (>60); EGFR Non-African American 110.9 (>60); Globulin 5.6 g/dL (2-4); Glucose 106 mg/dL (70-100); Potassium 3.5 mmol/L (3.5-5.0); Sodium 137 mmol/L (135-145); Total Protein 9.3 g/dL (6.4-8.9)
[2019-03-10 18:21] LABS: HCG Pregnancy < 0.60 mIU/mL
[2019-03-10] MEDS ORDERED: Iohexol 350* (CONTRAST) 500 ML MDV IV ONE (18:47)
[2019-03-10] MEDS ORDERED: Ketorolac INJ* 30 MG/ML 1 ML VIAL IV PUSH ONE (19:29)
[2019-03-10 20:07] VITALS: BP 108/80
== END 2019-03-10 20:06 | disposition home or self-care (01) ==
LOC: ED 17:11
DX: R07.89 Other chest pain (principal); R06.02 Shortness of breath; R05 Cough; R10.84 Generalized abdominal pain; G43.909 Migraine, unspecified, not intractable, without status migrainosus; Z87.891 Personal history of nicotine dependence
CPT/HCPCS: 36415; 71046; 71275; 80053; 83605; 83690; 84484; 84702; 85025; 85379; 86140; 93005; 96374; 99282; J1885; Q9967

== ENCOUNTER 2019-08-15 06:16 | Emergency (ER) | payer OTHER ==
[2019-08-15] MEDS ORDERED: Ketorolac INJ* 30 MG/ML 1 ML VIAL IV ONE (06:58)
[2019-08-15] MEDS ORDERED: NS 0.9% 1000 ML** 1,000 ML IV ONE (06:58)
--- NOTE | 2019-08-15 06:58 | ED ---
HPI Cardiac - HPI Summary HPI Summary: This patient is a 33-year-old female with a recent diagnosis of lupus presenting to the ED with 2 day hx of left-sided chest/rib which is worse when taking deep breaths. Endorses sweats and chills, but denies fevers. She thought is was originating from the flank, but states it is much higher, and locates the pain to the L side body. She states she had had this before and was dx with pleurisy. Has had 2 CTA with negative findings despite elevated dimers. Chest xrays have been negative. She denies any known kidney dysfunction and denies any gross hematuria. Denies peripheral edema. No cough, congestion, n/v/c/d. Platform Loader is Dr. Lees from [facility]. Current medications include Humira and high dose prednisone. - History of Current Complaint Chief Complaint: EDShortnessOfBreath Stated Complaint: SOB PER PT Time Seen by Provider: 08/15/19 06:38 Hx Obtained From: Patient, Medical Records Hx Last Menstrual Period: depo Onset/Duration: Started Days Ago Timing: Constant Initial Severity: Moderate Current Severity: Moderate Pain Intensity: 7 Pain Scale Used: 0-10 Numeric Chest Pain Location: Left Lateral Chest Pain Radiates: No Aggravating Factor(s): Nothing Alleviating Factor(s): Nothing Associated Signs and Symptoms: Positive: Diaphoresis. Negative: Chest Pain, Vision Changes, Anxiety, Recent Stress, Productive Cough, Nasal Congestion, URI - Allergy/Home Medications Allergies/Adverse Reactions: Allergies Allergy/AdvReac Type Severity Reaction Status Date / Time No Known Allergies Allergy Verified 08/15/19 06:23 Home Medications: Home Medications Adalimumab [Humira] 40 mg SUBCUT ONCE 08/15/19 [History Confirmed 08/15/19] Ergocalciferol CAP* [Drisdol CAP*] 50,000 unit PO WEEKLY 08/15/19 [History Confirmed 08/15/19] Hydroxychloroquine TAB* [Plaquenil TAB*] 200 mg PO BID 08/15/19 [History Confirmed 08/15/19] Naproxen Sodium [Aleve] 220 mg PO .Q6-7HRS PRN 08/15/19 [History Confirmed 08/15] predniSONE 10 mg TAB [Deltasone 10 MG TAB*] 20 mg PO DAILY 08/15/19 [History Confirmed 08/15/19] PMH/Surg Hx/FS Hx/Imm Hx Previously Healthy: Yes Endocrine/Hematology History: Denies: Hx Anticoagulant Therapy, Hx Diabetes Cardiovascular History: Denies: Hx Hypertension, Hx Pacemaker/ICD Respiratory History: Denies: Hx Asthma, Hx Chronic Obstructive Pulmonary Disease (COPD) GI History: Reports: Hx Gastroesophageal Reflux Disease - only during History: Denies: Hx Renal Disease Sensory History: Reports: Hx Contacts or Glasses - contacts, will wear glasses day of surgery Denies: Hx Hearing Aid Opthamlomology History: Reports: Hx Contacts or Glasses - contacts, will wear glasses day of surgery Neurological History: Reports: Hx Migraine - takes prn excedrin Psychiatric History: Denies: Hx Panic Disorder - Surgical History Surgery Procedure, Year, and Place: leep procedure , 15 yrs ago - [facility]. bilateral axillary hidrandenitis - 2 yrs ago - [facility] Hx Anesthesia Reactions: No - Immunization History Hx Pertussis Vaccination: No Immunizations Up to Date: Yes Infectious Disease History: No Infectious Disease History: Reports: Hx of Known/Suspected MRSA - groin abcess Denies: History Other Infectious Disease, Traveled Outside the [place] in Last 30 Days - Family History Known Family History: Positive: Diabetes Negative: Cardiac Disease, Hypertension, Blood Disorder - Social History Occupation: Employed Full-time Lives: With Family Alcohol Use: Occasionally Hx Substance Use: Yes Substance Use Type: Reports: Marijuana Substance Use Comment - Amount & Last Used: occ. Hx Tobacco Use: No Smoking Status (MU): Former Smoker Have You Smoked in the Last Year: No Review of Systems Positive: Chills, Skin Diaphoresis. Negative: Fever, Fatigue Negative: Photophobia, Blurred Vision, Diplopia, Drainage Positive: Chest Pain - left sided worse with inspiration. Negative: Palpitations Negative: Shortness Of Breath, Cough Genitourinary: Negative Positive: no symptoms reported, see HPI. Negative: burning, dysuria, discharge , flank pain, hematuria, incontinence Negative: Arthralgia, Myalgia Skin: Negative Neurological: Negative All Other Systems Reviewed And Are Negative: Yes Physical Exam Triage Information Reviewed: Yes Vital Signs On Initial Exam: Initial Vitals Temp Pulse Resp BP Pulse Ox 98.7 F 88 20 126/77 98 08/15/19 06:20 08/15/19 06:20 08/15/19 06:20 08/15/19 06:20 08/15/19 06:20 Vital Signs Reviewed: Yes Appearance: Positive: Well-Appearing, Well-Nourished Skin: Positive: Warm, Skin Color Reflects Adequate Perfusion Head/Face: Positive: Normal Head/Face Inspection Eyes: Positive: EOMI, MEENA, Conjunctiva Clear Neck: Positive: Supple, Nontender, No Lymphadenopathy Respiratory/Lung Sounds: Positive: Clear to Auscultation, Breath Sounds Present Cardiovascular: Positive: RRR, Pulses are Symmetrical in both Upper and Lower Extremities Abdomen Description: Positive: No Organomegaly, Soft. Negative: CVA Tenderness (R), CVA Tenderness (L) Musculoskeletal: Positive: Normal, Strength/ROM Intact Neurological: Positive: Sensory/Motor Intact, Alert, Oriented to Person Place, Time, Speech Normal Psychiatric: Positive: Normal, Affect/Mood Appropriate AVPU Assessment: Alert Procedures - Sedation Patient Received Moderate/Deep Sedation with Procedure: No Diagnostics - Vital Signs Vital Signs Temp Pulse Resp BP Pulse Ox 08/15/19 06:20 98.7 F 88 20 126/77 98 - Laboratory Result Diagrams: 08/15/19 07:30 08/15/19 07:30 Lab Statement: Any lab studies that have been ordered have been reviewed, and results considered in the medical decision making process. Disposition - Course Course Of Treatment: During this course of treatment, the patient is evaluated for sweats and chills and L sided chest/side body pain. Patient states she has had this for 2 weeks, although worse over the past 2 days and has remained intermittent. Denies urinary sxs or hematuria. Patient appears well, nondiaphoretic and nontoxic in appearing. No CVA tenderness bilaterally. Lungs CTA, RRR. No pleural rub. Labs obtained: ESR is 35, CRP of 79. 2+ blood , 2+ protein, 3+ RBC. Discussed case with director energy Dr. Rolle recommending creatinine/protein ratio. Urine protein, equals 50 mL, creatinine equals 398 for a ratio of .1g/day. Pt will discontinue Humira, f/u with Dr. Rolle on 08/20/19 as scheduled and f/u with her child care sitter regarding her discontinuation of her humira. Re-examination following toradol, pt states symptoms have improved. - Differential Dx - Cardiopulmonary Differential Diagnoses - Cardiopulmonary: Other - lupus flare, medication reaction, chest pain, hematuria - Diagnoses Provider Diagnoses: Proteinuria Discharge ED - Sign-Out/Discharge Documenting (check all that apply): Patient Departure - Discharge Plan Condition: Stable Disposition: HOME Referrals: Gina Garza MD [Primary Care Provider] - Additional Instructions: As discussed, per Dr. Rolle, you should have a discussion with your child care sitter regarding discontinuing your Humira as this may be worsening your flares/symptoms Please follow up with his office as scheduled on 08/20/19. If you develop worsening symptoms, please return to the ED - Billing Disposition and Condition Condition: STABLE Disposition: Home
[2019-08-15] MEDS ORDERED: Ondansetron INJ* 2 MG/ML VIAL IV ONE (06:59)
[2019-08-15 07:46] LABS: ABS Lymphocytes 0.7 10^3/ul (1.0-4.8); ABS Monocytes 0.6 10^3/ul (0-0.8); ABS Neutrophils 5.5 10^3/ul (1.5-7.7); Eosinophil % 0.4 %; Hematocrit 40 % (35-47); Hemoglobin 13.7 g/dL (12.0-16.0); Lymphocyte % 10.6 %; Mean Corpuscular HGB Conc 35 g/dL (31-36); Mean Corpuscular Hemoglobin 31 pg (27-31); Mean Corpuscular Volume 90 fL (80-97); Mean Platelet Volume 6.6 fL (7.4-10.4); Platelet Count 229 10^3/uL (150-450); Red Cell Distribution Width 15 % (10-15); White Blood Count 6.8 10^3/uL (3.5-10.8)
[2019-08-15 07:49] LABS: Urine Appearance Cloudy; Urine Bilirubin Negative (Negative); Urine Blood 2+ (Negative); Urine Color Amber; Urine Glucose Negative (Negative); Urine Ketones 2+ (Negative); Urine Nitrite Negative (Negative); Urine Protein 2+(100 mg/dL) (Negative); Urine Specific Gravity 1.029 (1.010-1.030); Urine Urobilinogen Negative (Negative)
[2019-08-15 07:50] LABS: Urine Bacteria Absent (Absent); Urine Red Blood Cell 3+(>10/hpf) (Absent); Urine Squamous Epithelial Cell Present (Absent); Urine White Blood Cell Trace(0-5/hpf) (Absent)
[2019-08-15] MEDS ORDERED: Metoclopramide IV* 5 MG/ML 2 ML VIAL IV ONE (07:53)
[2019-08-15 08:02] LABS: BUN/Creatinine Ratio 8.6 (8-20); Calcium 9.3 mg/dL (8.6-10.3); EGFR African American 116.6 (>60); EGFR Non-African American 96.4 (>60); Globulin 3.9 g/dL (2-4); Potassium 3.9 mmol/L (3.5-5.0); Total Protein 7.9 g/dL (6.4-8.9)
[2019-08-15 09:40] LABS: C Reactive Protein 79.58 mg/L (<8.01)
[2019-08-15 10:36] LABS: Erythrocyte Sed Rate 35 mm/Hr (0-19)
[2019-08-15 12:00] LABS: Urine Creatinine Concentration 398.41 mg/dL
[2019-08-15 12:46] VITALS: BP 125/70
== END 2019-08-15 12:30 | disposition home or self-care (01) ==
LOC: ED 06:16
DX: R80.9 Proteinuria, unspecified (principal); Z87.891 Personal history of nicotine dependence; Z79.899 Other long term (current) drug therapy
CPT/HCPCS: 36415; 71046; 80053; 81003; 81015; 82570; 83605; 84156; 84484; 85025; 85652; 86140; 87086; 93005; 96361; 96374; 96375; 99284; J1885; J2405; J2765